=== PATIENT | male | born 1955 | race Caucasian/White ===

== ENCOUNTER 2016-10-14 10:16 | Inpatient (IN) ==
[2016-10-14 11:41] VITALS: BMI 24.2
--- NOTE | 2016-10-14 12:06 | IRU History & Physical Report ---
HPI [facility] Date: Chief complaint: I'm weak on my right side HPI: Mr. Rubi is a pleasant gentleman who has experienced a recent CVA involving the left hemisphere. He has a history of prior strokes at least on 2 prior occasions. At this time, about 2 weeks ago he walked over to his daughter's house who lives next door to him. He reported to her that he was not feeling right. She noted that he was dragging his right leg and that the right face was drooped which was new for him. There was also some speech difficulty. The patient was transferred to [place] emergency department where he was evaluated and seen by tele-neurologist. CT scan failed to reveal any new findings but an MRI was not immediately available. The neurologist recommended against TPA and recommended MRI. He was then transported to [facility] in [place]. On 10/04/2016 MRI of the brain revealed an acute lacunar infarct involving the posterior limb of the left internal capsule. No bleed was noted. MRA of the neck with contrast revealed moderate atherosclerotic disease, right greater than left disease involving the posterior cerebral arteries but otherwise no evidence of acute occlusion. No aneurysmal formation was noted. Surgery was not recommended. The patient was treated with Plavix and aspirin. Unfortunately he developed acute GI bleeding with a drop in his hemoglobin from 10.6 down to 9.4 on October 11. He was noted to have an acute GI bleed involving the GE junction where a distal esophageal ulcer was noted with stricture. At the present time medically he requires monitoring of his hemoglobin as well as the effects from his stroke. He is off Plavix due to the bleed and for this reason he is at increased risk of angina. He does see Dr. Zapien regarding his cardiac status. Does have history of prior heart attack 7 years ago. A stent was placed. Had a recent treadmill and was told that he does have some disease but did not recommend intervention at this time. Patient does have history of hypertension but no diabetes. He is a former smoker. 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 Prior to this, the patient did have significant debilitation in terms of memory loss, however he was was living independently at home. Daughter lives next door. 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 He was able to prepare his own foods at home and take care of himself at home prior to the current event. The following medical conditions are noted and require physician monitoring and treatment. 1. Recent CVA regarding left internal capsule, ischemic 2. Underlying coronary artery disease. His Plavix is held due to the GI bleeding and he is at increased risk for angina in this regard. 3. Recent GI bleeding involving lower esophageal ulcer with stricture. The following therapies will be needed: 1. Physical therapy: for transfers and ambulation and stairs. He does have 3 stairs to get into his house at home. He does not use assistive devices at home. 2. Occupational therapy: for ADL's and transfers. 3. Dietitian:. Regarding low fat low cholesterol low salt diet and mechanically soft alteration. He will require speech therapy as well evaluation. 4. Medical management: for the above conditions. 5. 24 hour Rehabilitation Nursing to monitor and address the following: Blood pressure, coronary artery disease, monitoring for any evidence of GI bleeding and stroke progression. Review of Systems - Constitutional Constitutional: Present: as per HPI, anorexia, fatigue. Absent: headache(s) - EENMT Mouth/Throat: Absent: sore throat - Cardiovascular Cardiovascular: Absent: chest pain, palpitations, syncope, dyspnea on exertion, orthopnea, edema Rhythm: Present: regular rhythm Vascular: Absent: intermittent claudication, pallor of an extermity, pedal edema - Respiratory Respiratory: Absent: cough, dyspnea, hemoptysis, dyspnea on exertion - Gastrointestinal Gastrointestinal: Absent: abdominal pain, change in bowel habits, change in stool character, constipation, diarrhea Gastrointestinal Comments: He has had recent evidence of GI bleeding. I'm not certain if he had melena or hematemesis. I do see a report of an upper GI in the transfer records but do not see an EGD although one may have been done. - Genitourinary Genitourinary: Absent: difficulty urinating - Musculoskeletal Musculoskeletal: Present: abnormal gait - Neurological Neurological: Present: abnormal gait, focal weakness, memory loss. Absent: frequent falls [facility] Patient Stated Medical History Cerebrovascular Accident Yes: 10/2012, 10/2014-right sided weakness, 2016 Dementia Yes Hearing Loss Yes Hypertension Yes Myocardial Infarction Yes: 2009 Constipation No Gastroesophageal Reflux Yes Disease Hx Incontinence No Clotting Problems Yes: saw dr white and added vitamins to help Other Musculoskeletal Yes: gout Depression Yes Surgical History: Hernia repair, cardiac catheterization with stent placement 2009 Family History: Father is with "heart attack" Mother is with cancer - Social History Smoking status: Former smoker (smoked less than 1 pack weekly from age 14 to about age 57 or so) Time spent discussing smoking cessation with patient: 3 to 10 minutes Alcohol intake: former Alcohol intake frequency: former alcohol drinker Housing: house Household members: none Current occupational status: retired (worked as a 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 for a grocery 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.) Current residence: Apartment/Private Home (supportive daughter who lives next door.) Medications Home Medications Medication Instructions Recorded Confirmed Type Allopurinol 450 mg PO DAILY #0 02/01/12 10/14/16 History Clopidogrel Bisulfate [Plavix] 75 mg PO DAILY #0 02/06/12 10/14/16 History Carvedilol 1 tab PO DAILY #0 tab 12/09/14 10/14/16 History Cyanocobalamin/Folic Acid [Vitamin 1 tab PO DAILY #0 12/09/14 10/14/16 History D09-[id number] Acid Tablet] Donepezil HCl 10 mg PO HS #0 tab 10/06/15 10/14/16 History Stanfield-3 Fatty Acids [Stanfield-3] 1,000 mg PO DAILY 10/03/16 10/14/16 History Aspirin 1 tab PO DAILY 10/14/16 10/14/16 History Atorvastatin Calcium 1 tab PO HS 10/14/16 10/14/16 History Doxazosin [Cardura] 2 mg PO BID 10/14/16 10/14/16 History Pantoprazole Tab [Protonix Tab] 1 tab PO ACBID 10/14/16 10/14/16 History Allergies Allergy/AdvReac Type Severity Reaction Status Date / Time Penicillins AdvReac Mild Verified 10/06/15 12:56 Exam Vital Signs: Temperature 97.6 F 10/14/16 11:09 Pulse Rate 76 10/14/16 11:09 Respiratory Rate 16 10/14/16 11:09 Blood Pressure 133/86 10/14/16 11:09 Pulse Oximetry 92 10/14/16 11:09 Oxygen Delivery Method Room Air Height: 1.75 m Weight: 74.3 kg Body Mass Index: 24.2 - Constitutional Present: no acute distress Comments: Patient appears apathetic. Unable to answer many questions and refers most questions to his daughter. - Routine HEENT Exam Head: Present: normocephalic, atraumatic Eye: Present: EOMI, PERRL. Absent: conjunctival icterus, scleral injection ENT: Present: mucous membranes moist, oropharynx clear - Routine Neck Exam Present: supple, full ROM. Absent: JVD, carotid bruit - Routine Respiratory Exam Present: CTA bilaterally. Absent: accessory muscle use, respiratory distress, wheezes, crackles - Routine Cardiovascular Exam Present: RRR, S1, S2, no murmur - Routine Abdominal Exam Present: soft, normoactive bowel sounds, non distended, non tender - Routine Extremities Exam Present: no edema, pulses intact, normal capillary refill. Absent: cyanosis - Routine Skin Exam Present: intact, dry. Absent: erythema - Routine Neurological Exam Present: alert, motor deficit (right facial droop, markedly reduced fine motor movement right hand, weakness and flexion and extension right upper extremity. Right lower extremity demonstrates weakness compared to the left but is able to raise off the bed against resistance.), abnormal gait. Absent: oriented X3, CN II-XII intact Memory loss evident. - Routine Psychiatric Exam Present: cooperative. Absent: normal affect, normal thought process, good insight, good judgment IRU A/P (1) Cerebral infarction Qualifiers: Cerebral infarction mechanism: thrombosis Precerebral and cerebral artery: middle cerebral artery Laterality of affected vessel: left Qualified Code(s) : I63.312 - Cerebral infarction due to thrombosis of left middle cerebral artery Current visit: No Status: Acute Patient has been on Plavix for that is been held due to the GI bleeding. We will monitor for any progression of the stroke. He will require physical therapy , occupational therapy and speech therapy. (2) Acute GI bleeding Current visit: Yes Status: Acute Hemoglobin will be monitored. Patient does have esophageal ulcer with stricture (3) Acute blood loss anemia Current visit: Yes Status: Acute (4) Memory loss due to medical condition Current visit: Yes Status: Acute Patient apparently did have some chronic memory loss prior to the current stroke but appears to have worsening memory issues at present. (5) Benign essential hypertension Current visit: Yes Status: Chronic (6) Coronary artery disease Qualifiers: Coronary Disease-Associated Artery/Lesion type: [place] artery [place] vs. transplanted heart: [place] heart Associated angina: without angina Qualified Code(s): I25.10 - Atherosclerotic heart disease of [place] coronary artery without angina pectoris Current visit: Yes Status: Chronic Patient has had a previous myocardial infarction followed by stent placement. Reported recent treadmill indicates presence of ischemia but intervention not recommended at present. DVT Prophylaxis: SCD's Resuscitation Status: Full Code - Course Hospital Course: Michael Romo MD: - Interventions to Obtain Goals Goals Progress/Modifications: Therapy will be directed toward strengthening, improving transfers and ambulatory ability. We will assess his swallowing ability with speech therapy. Anticipated goals including returning home for independent functioning and to avoid readmission.
--- NOTE | 2016-10-14 12:31 | IRU 24Hr Post Admit Eval ---
24 Hr Post Admission Physical - Relevant Changes Relevant Changes: No Reviewed: I have reviewed the patient's information and concur with the finding and results of the pre-admission screen. Certification: I certify the patient for rehabilitation. - Patient Condition (1) Cerebral infarction Status: Acute Qualifiers: Cerebral infarction mechanism: thrombosis Precerebral and cerebral artery: middle cerebral artery Laterality of affected vessel: left Qualified Code(s) : I63.312 - Cerebral infarction due to thrombosis of left middle cerebral artery Code(s): I63.9 - Cerebral infarction, unspecified Classification: Present on IRF Admission, IRF Tx That Should Address Diagnosis, Diagnosis Requiring Medical Follow Up (2) Acute GI bleeding Status: Acute Code(s): K92.2 - Gastrointestinal hemorrhage, unspecified Classification: IRF Tx That Should Address Diagnosis, Diagnosis Requiring Medical Follow Up (3) Acute blood loss anemia Status: Acute Code(s): D62 - Acute posthemorrhagic anemia Classification: Present on IRF Admission, IRF Tx That Should Address Diagnosis, Diagnosis Requiring Medical Follow Up (4) Memory loss due to medical condition Status: Acute Code(s): R41.3 - Other amnesia Classification: Present on IRF Admission, Other Contributing Factor (5) Benign essential hypertension Status: Chronic Code(s): I10 - Essential (primary) hypertension Classification: Present on IRF Admission (6) Coronary artery disease Status: Chronic Qualifiers: Coronary Disease-Associated Artery/Lesion type: [place] artery [place] vs. transplanted heart: [place] heart Associated angina: without angina Qualified Code(s): I25.10 - Atherosclerotic heart disease of [place] coronary artery without angina pectoris Code(s): I25.10 - Atherosclerotic heart disease of [place] coronary artery without angina pectoris Classification: Present on IRF Admission, Diagnosis Requiring Medical Follow Up - Prior Functional Status Residence Type: Hospice Assitive Devices: None Prior Functional Status: Indep. at home or school, Used no assistive device - Current Functional Status Failed Alternative Therapy: Arrived from Acute Care Patient Requirements: The patient requires oversight by rehabilitation physician to manage their rehabilitation treatment plan and multidisciplinary approach to care that can only be provided in an IRF and requires a multidisciplinary approach to care, provided by professional PTs, OTs, STs, dieticians, RTs, rehabilitation nurses and is not available in lesser levels of care. Speech Therapy Minutes: 30 Physical Therapy Minutes: 90 Occupational Therapy Minutes: 90 Therapy: The patient is to receive therapy at least [address] Treatment Plan: Swallow Retraining/Exercises, Swallow Precautions, Modified Diet ST Treatment Plan Frequency: Daily - Complications/Comorbidities Barriers to Discharge: Weakness, Balance, Endurance, Comprehension - Plan to Avoid Complications Plan to Avoid Complications: The patient cannot receive this care in a lesser intensive setting such as Halfway or Outpatient Therapy due to the patient requiring the following : Recent GI bleed with need to monitor hemoglobin carefully, recent CVA to monitor for progression of stroke or recurrence, underlying coronary artery disease with Plavix currently being held due to GI bleeding. .
--- NOTE | 2016-10-14 14:06 | Consult Note ---
<Kateryna Nelson - Last Filed: 10/14/16 13:48> Consult Information - Data of Consult Patient: new to practice Consult date: 10/14/16 Requesting Physician: Michael Romo MD Primary Care Provider: KELLEY STOLL Family Provider: KELLEY STOLL - Consult Narrative Reason for consult: medical management of chronic health problems History of present illness: Mr. Rubi is a 61-year-old white male admitted into the rehabilitation unit for ongoing strengthening following a recent stroke. He initially presented to [place] emergency department on 10/03 with symptoms of right facial droop and weakness of the right lower extremity. CT head was negative for acute changes. He was not a candidate for TPA given that he was not sure of time of onset of symptoms. He was transferred to [place] at the request of the family for further workup. MRI performed 10/04 revealed an acute lacunar infarct involving the posterior limb of the left internal capsule. MRA of the head revealed moderate atherosclerotic disease within the carotid siphons and right greater than left atherosclerotic disease involving the posterior cerebral arteries. MRA of the neck showed mild atherosclerotic disease at the carotid bifurcation. 2-D echo with bubble study was unremarkable. During his hospital stay he developed melanotic stools and a drop in his hemoglobin. This was worked up with an upper GI showing narrowing of the distal esophagus suggestive of underlying mucosal irregularity thought to be either an underlying neoplasm versus esophagitis from chronic reflux. EGD was then performed showing GE junction/distal esophageal ulcer with stricture and gastric erythema and erosions. Patient was started on twice a day PPI therapy with pantoprazole. To be treated for a total of 8 weeks. He will follow up with Dr. Leyva to review pathology results. His aspirin was restarted during his hospitalization in [place] and if he has no bleeding, he is to resume Plavix on 10/16. He also had speech therapy during his stay and progressed to a regular diet. The majority of this history of present illness is gathered through previous records. Patient with dementia. Poor historian. Patient requests to be a full code. See results section for full description of imaging and labs. [facility] CVA-10/23, 10/25, 09/26 Recent GI bleed Blood loss Anemia-related to recent GI bleed. 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 Lindsay Review of Systems Comprehensive ROS: completed and no additional positive findings except those as stated - Neurological Neurological: Present: memory loss, weakness (right-sided) Medications Home Medications Medication Instructions Recorded Confirmed Type Allopurinol 450 mg PO DAILY #0 02/01/12 10/14/16 History Clopidogrel Bisulfate [Plavix] 75 mg PO DAILY #0 02/06/12 10/14/16 History Carvedilol 1 tab PO DAILY #0 tab 12/09/14 10/14/16 History Cyanocobalamin/Folic Acid [Vitamin 1 tab PO DAILY #0 12/09/14 10/14/16 History J85-Dokge Acid Tablet] Donepezil HCl 10 mg PO HS #0 tab 10/06/15 10/14/16 History Newnan-3 Fatty Acids [Newnan-3] 1,000 mg PO DAILY 10/03/16 10/14/16 History Aspirin 1 tab PO DAILY 10/14/16 10/14/16 History Atorvastatin Calcium 1 tab PO HS 10/14/16 10/14/16 History Doxazosin [Cardura] 2 mg PO BID 10/14/16 10/14/16 History Pantoprazole Tab [Protonix Tab] 1 tab PO ACBID 10/14/16 10/14/16 History Allergies Allergy/AdvReac Type Severity Reaction Status Date / Time Penicillins AdvReac Mild Verified 10/06/15 12:56 Exam Vital Signs: Temperature 97.6 F 10/14/16 11:09 Pulse Rate 76 10/14/16 11:09 Respiratory Rate 16 10/14/16 11:09 Blood Pressure 133/86 10/14/16 11:09 Pulse Oximetry 92 10/14/16 11:09 Oxygen Delivery Method Room Air Height: 1.75 m Weight: 74.3 kg Body Mass Index: 24.2 - Constitutional Present: no acute distress, well nourished, well developed - Routine HEENT Exam Head: Present: normocephalic, atraumatic Eye: Present: EOMI, PERRL ENT: Present: mucous membranes moist. Absent: dentition normal (missing multiple teeth. Lower teeth remaining with decay) - Routine Neck Exam Present: supple. Absent: carotid bruit - Routine Chest/Breast/Axilla Exam Chest wall: Absent: tenderness - Routine Respiratory Exam Present: CTA bilaterally. Absent: wheezes - Routine Cardiovascular Exam Present: RRR, S1, S2. Absent: murmur - Routine Abdominal Exam Present: soft, normoactive bowel sounds, non distended. Absent: tenderness - Routine Extremities Exam Present: no edema, normal capillary refill - Routine Skin Exam Present: dry, warm - Routine Neurological Exam Present: alert, oriented X3, CN II-XII intact, abnormal gait (secondary to right -sided weakness), moving all extremities, facial asymmetry (mild right facial droop). Absent: sensory deficit, pronator drift Spa Supervisor strength is equal. 4/5 strength right arm and leg. 5/5 strength left arm and leg. Normal finger-nose and finger-finger. Delay on right side with rapid alternating hand movements. Slight right-sided facial droop noted of the mouth. Normal sensation bilaterally. Patient has difficulty with answering questions. Short-term memory loss. Oriented to person and place. Cannot identify day of week but can identify the month and year. Unable to identify president correctly. ([facility]) - Routine Psychiatric Exam Present: normal affect, cooperative. Absent: suicidal ideation Results - Labs Labs: Labs from 10/12/16 Hemoglobin 9.8, hematocrit 28.2, sodium 141, potassium 3.4, CO2 24, chloride 112 , creatinine 1.09, BUN 16, calcium 8.3 Labs from 10/11/16 WBC 6.2, hemoglobin 9.5, hematocrit 29.2, platelets 166, sodium 144, potassium 3.4, CO2 24, chloride 113, creatinine 1.11, BUN 23, glucose 89, magnesium 1.6 - Imaging and Cardiology CT scan - head Additional comments: 10/03/16 CT head-chronic microvascular changes and chronic lacunar infarcts 10/04/16 MRI brain-acute Lennar infarct involving the posterior limb of the left internal capsule. Deep white matter lacunar infarcts and advanced chronic microvascular changes present within the white matter. No acute hemorrhage. Remote blood products associated with the patient's chronic left basal ganglia lacunar infarcts and a small remote microbleed in the right parietal lobe. Findings may reflect sequelae of advanced underlying chronic microvascular disease although could be from intermittent embolic phenomenon. 10/04/16 MRA head-moderate atherosclerotic disease within the carotid siphons. Right greater than left atherosclerotic disease involving the posterior cerebral arteries. No aneurysm. 10/04/16 MRA neck-mild atherosclerotic disease at the carotid bifurcation. No significant stenosis. 10/12/16 Upper GI-persistent relative narrowing of the distal esophagus. Findings could be related to esophagitis from chronic reflux, although underlying neoplasm cannot be excluded. 10/12/16 EGD-GE junction/distal esophageal ulcer with stricture. Gastric erythema and erosions. Pathology pending. Assessment and Plan (1) Cerebral infarction Current visit: Yes Status: Acute (2) Acute GI bleeding Current visit: Yes Status: Acute Resuscitation Status: Full Code Assessment and Plan: Assessment CVA-10/23, 10/25, 09/26 Recent GI bleed Blood loss Anemia-related to recent GI bleed. 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 GERD-with evidence of esophagitis versus neoplasm on recent EGD (under the care of Dr. Leyva) Constipation Gout-on allopurinol Depression Plan Agree with admission to rehabilitation under the care of Dr. Romo. The hospitalist team will continue to follow patient for medical management throughout the patient's stay. CVA Continue aspirin. He is to restart Plavix on 10/16/16 if he has no further bleeding. Lipitor was increased to 80 mg in [place]. Continue Lovaza. Encourage PT/OT for strengthening Recent GI bleed Reported B12 and folate deficiency. Continue on folic acid and cyanocobalamin Continue pantoprazole 40 mg twice a day for GI protection. Monitor for evidence of bleeding. Will plan to resume Plavix as discussed above. Follow serial hemoglobin. To follow-up with Dr. Leyva in 1-2 months. GERD with esophagitis continue pantoprazole CAD/hypertension Continue carvedilol and doxazosin. Monitor closely as he had hypotension during recent hospitalization. Gout Continue allopurinol Dementia Continue Aricept Hospital Course Summary Disclaimer: The visit summary below is not to be considered part of the above Progress Note. Hospital Course: 10/14/16 - hospitalist consult Assessment CVA-10/23, 10/25, 09/26 Recent GI bleed Blood loss Anemia-related to recent GI bleed. 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 GERD-with evidence of esophagitis versus neoplasm on recent EGD (under the care of Dr. Leyva) Constipation Gout-on allopurinol Depression Plan Agree with admission to rehabilitation under the care of Dr. Romo. The hospitalist team will continue to follow patient for medical management throughout the patient's stay. CVA Continue aspirin. He is to restart Plavix on 10/16/16 if he has no further bleeding. Lipitor was increased to 80 mg in [place]. Continue Lovaza. Encourage PT/OT for strengthening Recent GI bleed Reported B12 and folate deficiency. Continue on folic acid and cyanocobalamin Continue pantoprazole 40 mg twice a day for GI protection. Monitor for evidence of bleeding. Will plan to resume Plavix as discussed above. Follow serial hemoglobin. To follow-up with Dr. Leyva in 1-2 months. GERD with esophagitis continue pantoprazole CAD/hypertension Continue carvedilol and doxazosin. Monitor closely as he had hypotension during recent hospitalization. Gout Continue allopurinol Dementia Continue Aricept <Alison Lee - Last Filed: 10/14/16 18:49> Consult Information - Data of Consult Requesting Physician: Michael Romo MD Primary Care Provider: KELLEY STOLL Family Provider: KELLEY STOLL [facility] Patient Stated Medical History Cerebrovascular Accident Yes: 10/2012, 10/2014-right sided weakness, 2016 Dementia Yes Hearing Loss Yes Hypertension Yes Myocardial Infarction Yes: 2009 Constipation No Gastroesophageal Reflux Yes Disease Hx Incontinence No Clotting Problems Yes: saw dr white and added vitamins to help Other Musculoskeletal Yes: gout Depression Yes Exam Vital Signs: Temperature 97.9 F 10/14/16 16:00 Pulse Rate 99 10/14/16 16:00 Respiratory Rate 16 10/14/16 16:00 Blood Pressure 141/83 H 10/14/16 16:00 Pulse Oximetry 98 10/14/16 16:00 Oxygen Delivery Method Room Air Height: 5 ft 9 in Weight: 163 lb 12.855 oz Results - Labs CBC & Chem 7: 10/14/16 14:18 Assessment and Plan (1) Cerebral infarction Current visit: Yes Status: Acute (2) Acute GI bleeding Current visit: Yes Status: Acute Assessment and Plan: I have independently evaluated and examined this patient. 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 We discussed and formulated the assessment and plan as above with additions as below. The patient was seen sitting in a chair in his room. He expresses his wish to be home. Discussed his recent hospital course with his CVA and recent GI bleed. He has no complaints at this time. In general, the patient is alert and oriented 3, cooperative with exam, and in no respiratory distress. HEENT: Head is atraumatic, normocephalic, membranes are moist and pink. Lungs: Clear to auscultation without wheezes, crackles or rhonchi CV: Regular rate and rhythm without murmur Abdomen: Soft, nontender, bowel sounds are present, there is no guarding no rebound. Extremities: No clubbing, no cyanosis, no edema. Skin: Warm and dry no sign of rash Neuro: Patient is alert with right facial droop, weakness of right hand and right leg As outlined by Dr. Leyva, Will continue aspirin for 72 hours, check CBC in the morning, if his hemoglobin remains stable will resume Plavix on October 16. Hospital Course Summary Disclaimer: The visit summary below is not to be considered part of the above Progress Note.
[2016-10-14] MEDS: PANTOPRAZOLE 40 MG TABLET PO SCH (17:43)
[2016-10-14] MEDS: ASPIRIN 325 MG TABLET PO SCH (17:43)
[2016-10-14] MEDS: DONEPEZIL 10 MG TABLET PO SCH (21:11)
[2016-10-14] MEDS: ATORVASTATIN 40 MG TABLET PO SCH (21:11)
[2016-10-14] MEDS: DOXAZOSIN 2 MG TABLET PO SCH (21:11)
[2016-10-15] MEDS: PANTOPRAZOLE 40 MG TABLET PO SCH ×2 (07:16→17:20)
[2016-10-15] MEDS: CARVEDILOL 3.125 MG TABLET PO SCH (08:30)
[2016-10-15] MEDS: ALLOPURINOL 300 MG TABLET PO SCH (08:31)
[2016-10-15] MEDS: FOLIC ACID 1 MG TABLET PO SCH (08:31)
[2016-10-15] MEDS: CYANOCOBALAMIN (B-12) 500mcg TABLET PO SCH (08:31)
[2016-10-15] MEDS: DOXAZOSIN 2 MG TABLET PO SCH ×2 (08:31→20:59)
[2016-10-15] MEDS: OMEGA-3 ACID ESTERS 1 GM CAPSULE PO SCH (08:31)
[2016-10-15] MEDS: ASPIRIN 325 MG TABLET PO SCH (08:33)
[2016-10-15] MEDS: ATORVASTATIN 40 MG TABLET PO SCH (20:59)
[2016-10-15] MEDS: DONEPEZIL 10 MG TABLET PO SCH (20:59)
[2016-10-16] MEDS: PANTOPRAZOLE 40 MG TABLET PO SCH ×2 (06:28→17:49)
[2016-10-16] MEDS: CYANOCOBALAMIN (B-12) 500mcg TABLET PO SCH (09:14)
[2016-10-16] MEDS: OMEGA-3 ACID ESTERS 1 GM CAPSULE PO SCH (09:14)
[2016-10-16] MEDS: FOLIC ACID 1 MG TABLET PO SCH (09:14)
[2016-10-16] MEDS: CARVEDILOL 3.125 MG TABLET PO SCH (09:14)
[2016-10-16] MEDS: ALLOPURINOL 300 MG TABLET PO SCH (09:14)
[2016-10-16] MEDS: DOXAZOSIN 2 MG TABLET PO SCH ×2 (09:14→21:10)
[2016-10-16] MEDS: ASPIRIN 325 MG TABLET PO SCH (09:15)
--- NOTE | 2016-10-16 10:35 | Progress Note ---
Subjective: Mr. Rubi is seen this morning in follow up for his recent CVA and generalized debility. He also has a known esophageal ulcer. He is seen while sitting in the dining room, finishing his breakfast. He denies any complaints including no chest pain, shortness of breath, abdominal pain, nausea, vomiting or dysuria. He states that his appetite is good and his bowels are moving, though no BM noted in nursing notes. He does express a strong desire to go home. On exam, he is alert and orientated x3 and in no apparent distress. He has eaten almost all of his breakfast. Cardiac exam reveals regular rate and rhythm and lungs are clear to auscultation bilaterally. Abdomen is soft, nontender with active bowel sounds. No edema noted to lower extremities. Mild right facial droop noted. Labs from this morning revealed stable anemia with hemoglobin at 9.8, persistent hypernatremia with sodium at 147 and new hypokalemia with potassium at 3.4. Vital signs stable. Objective Vital signs: Temperature 98.1 F 10/16/16 07:43 Pulse Rate 63 10/16/16 07:43 Respiratory Rate 12 10/16/16 07:43 Blood Pressure 141/78 H 10/16/16 07:43 Pulse Oximetry 98 10/16/16 07:43 Oxygen Delivery Method Room Air Body Mass Index: 24.2 - Constitutional Present: no acute distress, well nourished, well developed, cooperative - Routine HEENT Exam Head: Present: normocephalic, atraumatic Eye: Present: PERRL. Absent: conjunctival icterus ENT: Present: mucous membranes dry - Routine Respiratory Exam Present: CTA bilaterally. Absent: rhonchi, stridor, wheezes - Routine Cardiovascular Exam Present: RRR, S1, S2, no murmur - Routine Abdominal Exam Present: soft, normoactive bowel sounds, non distended, non tender - Routine Extremities Exam Present: no edema, pulses intact - Routine Back/Spine/Pelvis Exam Back/Spine: Absent: vertebral tenderness - Routine Musculoskeletal Exam Musculoskeletal: Present: no clubbing or cyanosis, moving extremities well - Routine Skin Exam Present: intact, dry, warm Comments: afebrile - Routine Neurological Exam Present: alert, oriented X3, moving all extremities, facial asymmetry (right facial droop) - Routine Lymphatic Exam Lymphatic: Absent: lymphedema - Routine Psychiatric Exam Present: normal affect, cooperative Results - Labs CBC & Chem 7: 10/16/16 04:25 10/16/16 04:26 Assessment and Plan (1) Cerebral infarction Current visit: Yes Status: Acute (2) Acute GI bleeding Current visit: Yes Status: Acute Assessment and Plan: 10/16/16-Mirakian. Hypernatremia, acute. * Present on admission. Sodium 147 today. Encourage fluid intake and monitor trends closely. Hypokalemia, acute. * Potassium 3.4 today. Will give KCl 20 mEq po now and recheck in AM. CVA - 10/23, 10/25, 09/26. * Continue ASA. Hemoglobin remains stable at 9.8 today. Will restart Plavix and monitor closely for signs of bleeding. Continue Lipitor at new dose (80mg) and Lovaza. Continue to encourage participation in therapies for improvement in strength and functional abilities. Blood loss anemia, related to GI bleed and history of GERD. * Recent EGD by Dr. Leyva in 09/2016 showed evidence of esophagitis vs. neoplasm. Continue Protonix 40mg BID for treatment of esophageal ulcer and GI protection x 8 weeks per prior notes. Monitor closely for signs of GI bleed in light of reinitiation of Plavix. Will recheck CBC in AM to monitor blood counts. * Patient to follow up with Dr. Leyva in 1-2 months as an outpatient. B12 and folic acid deficiency anemia. * Continue folic acid and cyanocobalamin. Hypertension. * Continue carvedilol and doxazosin. Monitor closely as he had hypotension during recent hospitalization. CAD. Dementia, chronic. * Continue home Aricept. Constipation. * Bowel motivation at indicated with Colace and MOM. Gout, chronic. * Continue home allopurinol. Sepsis Assessment - Evaluation Sepsis screening result: No Definite Risk Hospital Course Summary Disclaimer: The visit summary below is not to be considered part of the above Progress Note. Hospital Course: 10/14/16 - hospitalist consult Assessment CVA-10/23, 10/25, 09/26 Recent GI bleed Blood loss Anemia-related to recent GI bleed. 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 GERD-with evidence of esophagitis versus neoplasm on recent EGD (under the care of Dr. Leyva) Constipation Gout-on allopurinol Depression Plan Agree with admission to rehabilitation under the care of Dr. Romo. The hospitalist team will continue to follow patient for medical management throughout the patient's stay. CVA Continue aspirin. He is to restart Plavix on 10/16/16 if he has no further bleeding. Lipitor was increased to 80 mg in [place]. Continue Lovaza. Encourage PT/OT for strengthening Recent GI bleed Reported B12 and folate deficiency. Continue on folic acid and cyanocobalamin Continue pantoprazole 40 mg twice a day for GI protection. Monitor for evidence of bleeding. Will plan to resume Plavix as discussed above. Follow serial hemoglobin. To follow-up with Dr. Leyva in 1-2 months. GERD with esophagitis continue pantoprazole CAD/hypertension Continue carvedilol and doxazosin. Monitor closely as he had hypotension during recent hospitalization. Gout Continue allopurinol Dementia Continue Aricept 10/16/16 10:50-Mirakian. Hypernatremia, acute. * Present on admission. Sodium 147 today. Encourage fluid intake and monitor trends closely. Hypokalemia, acute. * Potassium 3.4 today. Will give KCl 20 mEq po now and recheck in AM. CVA - 10/23, 10/25, 09/26. * Continue ASA. Hemoglobin remains stable at 9.8 today. Will restart Plavix and monitor closely for signs of bleeding. Continue Lipitor at new dose (80mg) and Lovaza. Continue to encourage participation in therapies for improvement in strength and functional abilities. Blood loss anemia, related to GI bleed and history of GERD. * Recent EGD by Dr. Leyva in 09/2016 showed evidence of esophagitis vs. neoplasm. Continue Protonix 40mg BID for treatment of esophageal ulcer and GI protection x 8 weeks per prior notes. Monitor closely for signs of GI bleed in light of reinitiation of Plavix. Will recheck CBC in AM to monitor blood counts. * Patient to follow up with Dr. Leyva in 1-2 months as an outpatient. B12 and folic acid deficiency anemia. * Continue folic acid and cyanocobalamin. Hypertension. * Continue carvedilol and doxazosin. Monitor closely as he had hypotension during recent hospitalization. CAD. Dementia, chronic. * Continue home Aricept. Constipation. * Bowel motivation at indicated with Colace and MOM. Gout, chronic. * Continue home allopurinol.
[2016-10-16] MEDS: CLOPIDOGREL 75 MG TABLET PO SCH (12:00)
[2016-10-16] MEDS: DONEPEZIL 10 MG TABLET PO SCH (21:10)
[2016-10-16] MEDS: ATORVASTATIN 40 MG TABLET PO SCH (21:10)
[2016-10-17] MEDS: PANTOPRAZOLE 40 MG TABLET PO SCH ×2 (05:52→17:34)
[2016-10-17] MEDS: DOXAZOSIN 2 MG TABLET PO SCH ×2 (08:19→22:00)
[2016-10-17] MEDS: ALLOPURINOL 300 MG TABLET PO SCH (08:19)
[2016-10-17] MEDS: CLOPIDOGREL 75 MG TABLET PO SCH (08:19)
[2016-10-17] MEDS: FOLIC ACID 1 MG TABLET PO SCH (08:20)
[2016-10-17] MEDS: OMEGA-3 ACID ESTERS 1 GM CAPSULE PO SCH (08:20)
[2016-10-17] MEDS: CYANOCOBALAMIN (B-12) 500mcg TABLET PO SCH (08:20)
[2016-10-17] MEDS: CARVEDILOL 3.125 MG TABLET PO SCH (08:20)
[2016-10-17] MEDS: ASPIRIN 325 MG TABLET PO SCH (08:21)
--- NOTE | 2016-10-17 12:23 | IRU Progress Note ---
- Subjective/Serverity of Illness Mr. Rubi is settling into rehabilitation. He seems to be ambulating well and with good distance. He requires standby assistance. The patient wonders why he is here. His memory loss is reasonably severe unfortunately. He would like to get back home as soon as possible. He is working with occupational therapy and speech therapy as well as physical therapy. The patient does have history of known coronary disease and a recent GI bleed. Hemoglobin is being monitored and is stable. Plavix and aspirin have been restarted per recommendation from [place]. He denies any chest pain. He denies any shortness of breath. Appetite is reasonable. Exam Vital Signs: Temperature 97.6 F 10/17/16 07:00 Pulse Rate 93 10/17/16 07:00 Respiratory Rate 18 10/17/16 07:00 Blood Pressure 134/98 H 10/17/16 07:00 Pulse Oximetry 98 10/17/16 07:00 Oxygen Delivery Method Room Air Height: 1.75 m Weight: 74.3 kg Body Mass Index: 24.2 - Constitutional Present: no acute distress Comments: The patient is awake, alert, poorly oriented but in no acute distress. Pupils are equal. The neck is supple. Chest: Clear to auscultation bilaterally. Cor: RR with no david, click nor murmur Abd: soft with normo-active bowel sounds. There are no masses, no tenderness and no guarding. Extremities: No edema is noted. Neurologic: RUE weak, able to ambulate with quad cane. Right face droop. Slurred speech as before. - Routine HEENT Exam Head: Present: normocephalic Eye: Present: EOMI ENT: Present: dentition normal - Routine Neck Exam Present: supple, full ROM - Routine Respiratory Exam Present: CTA bilaterally - Routine Cardiovascular Exam Present: RRR, S1, S2, no murmur - Routine Abdominal Exam Present: soft, normoactive bowel sounds, non distended, non tender - Routine Neurological Exam Present: alert, facial asymmetry. Absent: oriented X3, normal speech - Routine Psychiatric Exam Present: cooperative, anxious. Absent: good insight, good judgment (Memory loss ) Results IRU - Labs Labs: Reviewed hemoglobin which is stable. Sepsis Assessment - Evaluation Sepsis screening result: No Definite Risk IRU A/P (1) Cerebral infarction Qualifiers: Cerebral infarction mechanism: thrombosis Precerebral and cerebral artery: middle cerebral artery Laterality of affected vessel: left Qualified Code(s) : I63.312 - Cerebral infarction due to thrombosis of left middle cerebral artery Current visit: Yes Status: Acute Plavix and aspirin have been restarted. No worsening in his neurologic status. Continues to have right upper extremity weakness and slurred speech. (2) Acute GI bleeding Current visit: Yes Status: Acute No evidence of active GI bleeding. Hemoglobin is stable. No abdominal pain. (3) Acute blood loss anemia Current visit: Yes Status: Acute (4) Memory loss due to medical condition Current visit: Yes Status: Acute (5) Benign essential hypertension Current visit: Yes Status: Chronic (6) Coronary artery disease Qualifiers: Coronary Disease-Associated Artery/Lesion type: ho-chunk artery [place] vs. transplanted heart: ho-chunk heart Associated angina: without angina Qualified Code(s): I25.10 - Atherosclerotic heart disease of ho-chunk coronary artery without angina pectoris Current visit: Yes Status: Chronic Plavix and aspirin have been restarted. He denies any chest pain. Denies shortness of breath. Heart exam is unremarkable. DVT Prophylaxis: SCD's Resuscitation Status: Full Code - Course Hospital Course: Michael Romo MD: 10/17/16 12:26 Continues to progress with therapy. No chest pain. Hemoglobin stable. Wants to go home. Memory loss is a barrier to his progress. - Interventions to Obtain Goals PT Treatment Plan: Balance/Proprioception, Functional Activities, Gait Training , Patient/Family Education, Therapeutic Exercise OT Treatment Plan: ADL (Basic Care), Balance Training, IADL, Pt./Family Education, Ther. Exercise for ADL Goals Progress/Modifications: Memory loss is a significant barrier. He is cooperative. He is progressing with therapy.
--- NOTE | 2016-10-17 12:31 | IRU Plan of Care ---
U Overall Plan of Care - Date Date: 10/17/16 - Patient Impairments (1) Cerebral infarction Qualifiers: Cerebral infarction mechanism: thrombosis Precerebral and cerebral artery: middle cerebral artery Laterality of affected vessel: left Qualified Code(s) : I63.312 - Cerebral infarction due to thrombosis of left middle cerebral artery Code(s): I63.9 - Cerebral infarction, unspecified Status: Acute Classification: Present on IRF Admission, IRF Tx That Should Address Diagnosis, Diagnosis Requiring Medical Follow Up (2) Acute GI bleeding Code(s): K92.2 - Gastrointestinal hemorrhage, unspecified Status: Acute Classification: IRF Tx That Should Address Diagnosis, Diagnosis Requiring Medical Follow Up (3) Memory loss due to medical condition Code(s): R41.3 - Other amnesia Status: Acute Classification: Present on IRF Admission, Other Contributing Factor (4) Coronary artery disease Qualifiers: Coronary Disease-Associated Artery/Lesion type: [place] artery [place] vs. transplanted heart: [place] heart Associated angina: without angina Qualified Code(s): I25.10 - Atherosclerotic heart disease of [place] coronary artery without angina pectoris Code(s): I25.10 - Atherosclerotic heart disease of [place] coronary artery without angina pectoris Status: Chronic Classification: Present on IRF Admission, Diagnosis Requiring Medical Follow Up (5) Acute blood loss anemia Code(s): D62 - Acute posthemorrhagic anemia Status: Acute Classification: Present on IRF Admission, IRF Tx That Should Address Diagnosis, Diagnosis Requiring Medical Follow Up - Relevant Changes Relevant Changes: No Reviewed: I have reviewed the patient's information and concur with the finding and results of the pre-admission screen. Certification: I certify the patient for rehabilitation. - Medical Prognosis Medical Prognosis: Good Vital Signs: Last Vital Signs Temp 97.6 F 10/17/16 07:00 Pulse 93 10/17/16 07:00 Resp 18 10/17/16 07:00 BP 134/98 H 10/17/16 07:00 Pulse Ox 98 10/17/16 07:00 - Anticipated Interventions Anticipated Interventions: The patient requires inpatient IRF care for PT, OT, and/or ST for residuals remaining from recent cerebral infarction, and acute GI bleeding with blood loss anemia resulting in muscular weakness and strength deficits. Strength Deficits: Right Upper Extremity - FIM Ambulation Distance: 442 Toileting Adaptive Equipment: Grab Bars Number of Incontinent Voids: 1 - Current Functional Status Failed Alternative Therapy: Arrived from Acute Care Patient Requires: The patient requires oversight by rehabilitation physician to manage their rehabilitation treatment plan and multidisciplinary approach to care that can only be provided in an IRF and requires a multidisciplinary approach to care, provided by professional PTs, OTs, STs, dieticians, RTs, rehabilitation nurses and is not available in lesser levels of care. Speech-Language Pathology Minutes: 30 Physical Therapy Minutes: 90 Occupational Therapy Minutes: 90 Therapy: The patient is to receive therapy at least [address] Treatment Plan: Swallow Precautions, Modified Diet ST Treatment Plan Duration: One Week ST Treatment Plan Frequency: Three Times Per Week Plan of Care Comment: Cont POC; Recommend continuing MS diet at this time. ST will assess toleration for diet upgrade on 10/17/16. - Anticipated LOS/Outcomes Anticipated Functional Outcome: It is anticipated the patient will be able to return home to be able to live independently with his daughter living close by. He will be able to transfer with modified independence and ambulate. He will be able to swallow safely. Anticipated Length of Stay: 5 Anticipated DC Destination: Home, Self Fdc Safety Plan: The patient will be provided with the development of a Home Safety Plan for return to a home or home-like environment and and to ensure safety post discharge. - Plan to Avoid Complications Barriers to Attaining Goals: Weakness, Comprehension, Medical Limitation Plan to Avoid Complications: The patient cannot receive this care in a lesser intensive setting such as Retirement or Outpatient Therapy due to the patient requiring the following : close medical following of his recent acute GI blood loss with acute blood loss anemia, risk for recurrence of angina pectoris, neurologic monitoring regarding his recent CVA.
[2016-10-17 20:15] VITALS: RESP 16; TEMP 98.1
[2016-10-17] MEDS: DONEPEZIL 10 MG TABLET PO SCH (22:00)
[2016-10-17] MEDS: ATORVASTATIN 40 MG TABLET PO SCH (22:00)
[2016-10-18] MEDS: PANTOPRAZOLE 40 MG TABLET PO SCH (06:25)
[2016-10-18] MEDS: OMEGA-3 ACID ESTERS 1 GM CAPSULE PO SCH (08:40)
[2016-10-18] MEDS: ASPIRIN 325 MG TABLET PO SCH (08:40)
[2016-10-18] MEDS: CLOPIDOGREL 75 MG TABLET PO SCH (08:41)
[2016-10-18] MEDS: CARVEDILOL 3.125 MG TABLET PO SCH (08:41)
[2016-10-18] MEDS: CYANOCOBALAMIN (B-12) 500mcg TABLET PO SCH (08:41)
[2016-10-18] MEDS: DOXAZOSIN 2 MG TABLET PO SCH (08:41)
[2016-10-18] MEDS: FOLIC ACID 1 MG TABLET PO SCH (08:42)
[2016-10-18] MEDS: ALLOPURINOL 300 MG TABLET PO SCH (08:42)
--- NOTE | 2016-10-18 10:30 | IRU Progress Note ---
- Subjective/Serverity of Illness Agustin is improving with regard to therapy. I interviewed and examined him today in his room. He is able to ambulate with standby assistance with a walker. However with a cane he requires more assistance. He does agree to use the walker at home. He is anxious to go home as soon as he can. He apparently does not see any value in staying here. Unfortunately his dementia /memory loss is a significant impediment to his improvement. He has been provided a lot of education but he does not really retain this very well. He has had some safety issues and has experienced loss of balance. With regard to ADLs, he is fairly independent with grooming and with eating. Does have severe dentition problems as well. He denies any chest pain. Denies any bleeding problems. He has had no further worsening in his neurologic status. Does have right upper extremity weakness, fine motor movement problems on the right side and right facial droop. This has been stable. Exam Vital Signs: Temperature 98.1 F 10/18/16 08:00 Pulse Rate 83 10/18/16 08:00 Respiratory Rate 16 10/18/16 08:00 Blood Pressure 136/89 10/18/16 08:00 Pulse Oximetry 96 10/18/16 08:00 Oxygen Delivery Method Room Air Height: 1.75 m Weight: 74.3 kg Body Mass Index: 24.2 - Constitutional Present: no acute distress Comments: The patient is awake, alert and oriented and in no acute distress. Pupils are equal. Has extremely poor dentition with several missing teeth and the remaining teeth in poor repair. The neck is supple. Chest: Clear to auscultation bilaterally. Cor: RR with no david, click nor murmur Abd: soft with normo-active bowel sounds. There are no masses, no tenderness and no guarding. Extremities: No edema is noted. Neuro: Reduced strength on extension and flexion at the right elbow. Fine motor movement markedly diminished on the right side. Right facial droop present. Speech is unchanged. Able to ambulate with walker safely. - Routine HEENT Exam Head: Present: normocephalic Eye: Present: EOMI, PERRL ENT: Present: mucous membranes dry. Absent: dentition normal - Routine Neck Exam Present: supple - Routine Respiratory Exam Present: CTA bilaterally - Routine Cardiovascular Exam Present: RRR, S1, S2, no murmur - Routine Abdominal Exam Present: soft, normoactive bowel sounds, non distended, non tender - Routine Extremities Exam Present: no edema - Routine Skin Exam Present: intact - Routine Neurological Exam Present: alert, motor deficit. Absent: oriented X3, CN II-XII intact - Routine Psychiatric Exam Present: cooperative, depressed. Absent: normal affect, normal thought process , good insight, good judgment Sepsis Assessment - Evaluation Sepsis screening result: No Definite Risk IRU A/P (1) Cerebral infarction Qualifiers: Cerebral infarction mechanism: thrombosis Precerebral and cerebral artery: middle cerebral artery Laterality of affected vessel: left Qualified Code(s) : I63.312 - Cerebral infarction due to thrombosis of left middle cerebral artery Current visit: Yes Status: Acute His neurologic status has been stable. Continues to demonstrate right upper extremity weakness. Is able to ambulate with walker. Has made improvement with regard to transfers and ambulation. Memory loss is a significant impediment to his improvement however. Safety issues remain. (2) Acute GI bleeding Current visit: Yes Status: Acute Hemoglobin has been stable. No evidence of further GI blood loss. He is back on his Plavix and aspirin. (3) Memory loss due to medical condition Current visit: Yes Status: Acute (4) Coronary artery disease Qualifiers: Coronary Disease-Associated Artery/Lesion type: [place] artery [place] vs. transplanted heart: [place] heart Associated angina: without angina Qualified Code(s): I25.10 - Atherosclerotic heart disease of [place] coronary artery without angina pectoris Current visit: Yes Status: Chronic Denies any chest discomfort or shortness of breath. (5) Acute blood loss anemia Current visit: Yes Status: Acute DVT Prophylaxis: SCD's Resuscitation Status: Full Code - Course Hospital Course: Michael Romo MD: 10/17/16 12:26 Continues to progress with therapy. No chest pain. Hemoglobin stable. Wants to go home. Memory loss is a barrier to his progress. 10/18/16 10:32 He wants to go home as soon as possible. Memory loss continues to be an impediment. He is improving with regard to transfers and ambulation. Able to ambulate with walker but not with cane safely. He agrees to use a walker at home. - Interventions to Obtain Goals PT Treatment Plan: Balance/Proprioception, Functional Activities, Gait Training , Patient/Family Education, Therapeutic Exercise OT Treatment Plan: ADL (Basic Care), Balance Training, IADL, Pt./Family Education, Ther. Exercise for ADL
--- NOTE | 2016-10-18 12:14 | IRU Team Meeting ---
IRU Team Meeting - Nursing Vital Signs: Vital Signs - 24 hr 10/17/16 15:00 10/17/16 20:14 10/18/16 08:00 Temperature 98.0 F 98.1 F 98.1 F Pulse Rate 65 67 83 Respiratory Rate 18 16 16 Blood Pressure 136/83 125/86 136/89 Pulse Oximetry 98 99 96 Current Medications: Allopurinol (Zyloprim) 450 mg PO DAILY [facility] Last Admin: 10/18/16 08:42 Dose: 450 mg Aspirin (Asa) 325 mg PO DAILY [facility] Last Admin: 10/18/16 08:40 Dose: 325 mg Atorvastatin Calcium (Lipitor) 80 mg PO HS [facility] Last Admin: 10/17/16 22:00 Dose: 80 mg Carvedilol (Coreg) 3.125 mg PO WB [facility] Last Admin: 10/18/16 08:41 Dose: 3.125 mg Clopidogrel Bisulfate (Plavix) 75 mg PO DAILY [facility] Last Admin: 10/18/16 08:41 Dose: 75 mg Cyanocobalamin (Vit. B-12) 500 mcg PO DAILY [facility] Last Admin: 10/18/16 08:41 Dose: 500 mcg Donepezil HCl (Aricept) 10 mg PO HS [facility] Last Admin: 10/17/16 22:00 Dose: 10 mg Doxazosin Mesylate (Cardura) 2 mg PO BID [facility] Last Admin: 10/18/16 08:41 Dose: 2 mg Folic Acid (Folate) 1 mg PO DAILY [facility] Last Admin: 10/18/16 08:42 Dose: 1 mg Rprxj-[id number] Ethyl Esters (Lovaza) 1 gm PO DAILY [facility] Last Admin: 10/18/16 08:40 Dose: 1 gm Pantoprazole Sodium (Protonix Tab) 40 mg PO ACBID [facility] Last Admin: 10/18/16 06:25 Dose: 40 mg Comments: He struggles with memory loss. No new neuro changes. He is impulsive at times. Wants to go home. No med changes. [facility], Poor dentition.Cog eval: perseveration, auditory comp is poor. Set in his home routine. Diet: on cardiac diet. Eating 100%. Lives alone but daughter lives close by. - Physical Therapy Supine to Sit Bed Mobility Ability: Modified Independent Sit to Supine Bed Mobility Ability: Modified Independent Comments: SBA with car transfers. With walker he is Mod I and with cane he is SBA. Would benefit from outpt PT. Safety concerns are noted. Memory is an issue. - Occupational Therapy Grooming Ability: Modified Independent Bathing Ability: Stand By Assist/Supervision Lower Body Dressing Comment: Mod I for many acitivities. Loss of balance and safety awareness are concerns. Would benefit from outpt OT. - Care Plan Anticipated Length of Stay: 2 Anticipated DC Destination: Home, Self Care Interventions/Goals: Will ask daughter to come in for instruction. Anticipate home with daughter near by in a couple of days. Barriers to progress: memory, impulsiveness, recent CVA Goals: Home safely with daughter training.
--- NOTE | 2016-10-18 14:19 | Progress Note ---
Subjective: Agustin is seen today in follow up for his recent CVA. He reports that he is "miserable" today because he is ready to go home but "they" won't let him, referring the the rehab team. Since his admission, he has openly expressed his dislike of being in IRU. He denies any other complaints including no chest pain , shortness of breath, abdominal pain, nausea, vomiting or dysuria. When asked how therapy is going, he states "It's therapy". Review of the notes indicates that there is a possibility of discharge to his home in the near future. He continues to struggle with impulsive behaviors and memory loss. He reports that he lives next to his daughter and does not have any concerns about going home. Case management continues to work on discharge planning. His appetite has been good and his bowels are moving. On exam, he is sitting in his recliner, watching TV. He is alert and orientated and in no apparent distress. Cardiac exam reveals regular rate and rhythm and lungs are clear to auscultation. Abdomen is soft, nontender with active bowel sounds. No edema noted to lower extremities. Recent labs on 10/17 revealed persistent anemia with hemoglobin at 9.8 and improving hypernatremia with sodium trending down at 145. Objective Vital signs: Temperature 98.1 F 10/18/16 08:00 Pulse Rate 83 10/18/16 08:00 Respiratory Rate 16 10/18/16 08:00 Blood Pressure 136/89 10/18/16 08:00 Pulse Oximetry 96 10/18/16 08:00 Oxygen Delivery Method Room Air Body Mass Index: 24.2 - Constitutional Present: no acute distress, well nourished, well developed, cooperative - Routine HEENT Exam Head: Present: normocephalic, atraumatic Eye: Present: PERRL. Absent: conjunctival icterus ENT: Present: mucous membranes moist - Routine Respiratory Exam Present: CTA bilaterally. Absent: stridor, wheezes, crackles - Routine Cardiovascular Exam Present: RRR, S1, S2 - Routine Abdominal Exam Present: soft, normoactive bowel sounds, non distended, non tender - Routine Extremities Exam Present: no edema, non tender, pulses intact Comments: limited ROM of right in light of recent CVA. No new neurologic changes. - Routine Back/Spine/Pelvis Exam Back/Spine: Absent: erythema - Routine Musculoskeletal Exam Musculoskeletal: Present: limited range of motion - Routine Skin Exam Present: intact, dry, warm, ecchymosis (bilateral arms - healing) - Routine Neurological Exam Present: alert, hearing grossly intact, facial asymmetry (right droop), normal speech - Routine Lymphatic Exam Lymphatic: Absent: lymphedema - Routine Psychiatric Exam Present: cooperative Comments: ready for discharge Results - Labs CBC & Chem 7: 10/17/16 04:15 10/17/16 04:15 Assessment and Plan (1) Cerebral infarction Current visit: Yes Status: Acute (2) Acute GI bleeding Current visit: Yes Status: Acute Resuscitation Status: Full Code Assessment and Plan: 10/18/16-Mirakian. Hypernatremia, acute. * Present on admission. Sodium 145 on 10/17. Continue to encourage fluid intake and monitor trends closely. Recheck BMP on 10/20 to monitor electrolytes and renal function. Hypokalemia, acute - RESOLVED. * Potassium 3.7 on 10/17. Will recheck BMP on 10/20 to monitor blood counts and electrolytes. CVA - 10/23, 10/25, 09/26. * Overall, doing well in therapy and eager for discharge. Anticipate discharge in near future. * No change. Continue ASA. Hemoglobin remains stable at 9.8 today. Will restart Plavix and monitor closely for signs of bleeding. Continue Lipitor at new dose (80mg) and Lovaza. Continue to encourage participation in therapies for improvement in strength and functional abilities. Blood loss anemia, related to GI bleed and history of GERD. * Hemoglobin stable at 9.8 on 10/17. Continue to monitor trends periodically throughout admission. Recommend follow up with PCP as outpatient following discharge. * Recent EGD by Dr. Leyva in 09/2016 showed evidence of esophagitis vs. neoplasm. Continue Protonix 40mg BID for treatment of esophageal ulcer and GI protection x 8 weeks per prior notes. Monitor closely for signs of GI bleed in light of reinitiation of Plavix. Will recheck CBC in AM to monitor blood counts. * Patient to follow up with Dr. Leyva in 1-2 months as an outpatient. B12 and folic acid deficiency anemia. * No change. Continue folic acid and cyanocobalamin. Hypertension. * No change. Blood pressure fairly well controlled. Continue carvedilol and doxazosin. Monitor closely as he had hypotension during recent hospitalization. CAD. * No change. See above treatments. Dementia, chronic. * No change. Continue home Aricept. Constipation. * No change. Bowel motivation as indicated with Colace and MOM. Gout, chronic. * No change. Continue home allopurinol. Sepsis Assessment - Evaluation Sepsis screening result: No Definite Risk Hospital Course Summary Disclaimer: The visit summary below is not to be considered part of the above Progress Note. Hospital Course: 10/14/16 - hospitalist consult Assessment CVA-10/23, 10/25, 09/26 Recent GI bleed Blood loss Anemia-related to recent GI bleed. 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 GERD-with evidence of esophagitis versus neoplasm on recent EGD (under the care of Dr. Leyva) Constipation Gout-on allopurinol Depression Plan Agree with admission to rehabilitation under the care of Dr. Romo. The hospitalist team will continue to follow patient for medical management throughout the patient's stay. CVA Continue aspirin. He is to restart Plavix on 10/16/16 if he has no further bleeding. Lipitor was increased to 80 mg in [place]. Continue Lovaza. Encourage PT/OT for strengthening Recent GI bleed Reported B12 and folate deficiency. Continue on folic acid and cyanocobalamin Continue pantoprazole 40 mg twice a day for GI protection. Monitor for evidence of bleeding. Will plan to resume Plavix as discussed above. Follow serial hemoglobin. To follow-up with Dr. Leyva in 1-2 months. GERD with esophagitis continue pantoprazole CAD/hypertension Continue carvedilol and doxazosin. Monitor closely as he had hypotension during recent hospitalization. Gout Continue allopurinol Dementia Continue Aricept 10/16/16 10:50-Mirakian. Hypernatremia, acute. * Present on admission. Sodium 147 today. Encourage fluid intake and monitor trends closely. Hypokalemia, acute. * Potassium 3.4 today. Will give KCl 20 mEq po now and recheck in AM. CVA - 10/23, 10/25, 09/26. * Continue ASA. Hemoglobin remains stable at 9.8 today. Will restart Plavix and monitor closely for signs of bleeding. Continue Lipitor at new dose (80mg) and Lovaza. Continue to encourage participation in therapies for improvement in strength and functional abilities. Blood loss anemia, related to GI bleed and history of GERD. * Recent EGD by Dr. Leyva in 09/2016 showed evidence of esophagitis vs. neoplasm. Continue Protonix 40mg BID for treatment of esophageal ulcer and GI protection x 8 weeks per prior notes. Monitor closely for signs of GI bleed in light of reinitiation of Plavix. Will recheck CBC in AM to monitor blood counts. * Patient to follow up with Dr. Leyva in 1-2 months as an outpatient. B12 and folic acid deficiency anemia. * Continue folic acid and cyanocobalamin. Hypertension. * Continue carvedilol and doxazosin. Monitor closely as he had hypotension during recent hospitalization. CAD. Dementia, chronic. * Continue home Aricept. Constipation. * Bowel motivation at indicated with Colace and MOM. Gout, chronic. * Continue home allopurinol. 10/18/16 14:25 Hypernatremia, acute. * Present on admission. Sodium 145 on 10/17. Continue to encourage fluid intake and monitor trends closely. Recheck BMP on 10/20 to monitor electrolytes and renal function. Hypokalemia, acute - RESOLVED. * Potassium 3.7 on 10/17. Will recheck BMP on 10/20 to monitor blood counts and electrolytes. CVA - 10/23, 10/25, 09/26. * Overall, doing well in therapy and eager for discharge. Anticipate discharge in near future. * No change. Continue ASA. Hemoglobin remains stable at 9.8 today. Will restart Plavix and monitor closely for signs of bleeding. Continue Lipitor at new dose (80mg) and Lovaza. Continue to encourage participation in therapies for improvement in strength and functional abilities. Blood loss anemia, related to GI bleed and history of GERD. * Hemoglobin stable at 9.8 on 10/17. Continue to monitor trends periodically throughout admission. Recommend follow up with PCP as outpatient following discharge. * Recent EGD by Dr. Leyva in 09/2016 showed evidence of esophagitis vs. neoplasm. Continue Protonix 40mg BID for treatment of esophageal ulcer and GI protection x 8 weeks per prior notes. Monitor closely for signs of GI bleed in light of reinitiation of Plavix. Will recheck CBC in AM to monitor blood counts. * Patient to follow up with Dr. Leyva in 1-2 months as an outpatient. B12 and folic acid deficiency anemia. * No change. Continue folic acid and cyanocobalamin. Hypertension. * No change. Blood pressure fairly well controlled. Continue carvedilol and doxazosin. Monitor closely as he had hypotension during recent hospitalization. CAD. * No change. See above treatments. Dementia, chronic. * No change. Continue home Aricept. Constipation. * No change. Bowel motivation as indicated with Colace and MOM. Gout, chronic. * No change. Continue home allopurinol.
[2016-10-18 16:01] VITALS: BP 131/77; PULSE 71; O2SAT 99
--- NOTE | 2016-10-18 16:27 | Progress Note ---
Progress Note: It is our recommendation to the patient that he stay in another couple of days to work on balance and safety issues. He declines. His 2 daughters are here and agreed to take him home. He does agree to return to physical therapy as an outpatient.
--- NOTE | 2016-10-18 16:32 | Discharge Instructions ---
Discharge Plan - Med Rec/Dispo Referrals/Follow Up: KELLEY FRANK PA [Family Provider] - 1 Week (Please see Dr. Frank in about a week) Prescriptions: Continue Allopurinol 450 mg PO DAILY #0 Clopidogrel Bisulfate [Plavix] 75 mg PO DAILY #0 Carvedilol 1 tab PO DAILY #0 tab Dyke-3 Fatty Acids [Dyke-3] 1,000 mg PO DAILY Aspirin 1 tab PO DAILY Pantoprazole Tab [Protonix Tab] 1 tab PO ACBID Doxazosin [Cardura] 2 mg PO BID Cyanocobalamin/Folic Acid [Vitamin C81-Xmsca Acid Tablet] 1 tab PO DAILY #0 Donepezil HCl 10 mg PO HS #0 tab Atorvastatin Calcium 1 tab PO HS #30 tablet Discharge Instructions/Outpatient Orders: Final Provider Discharge Instructions Location: Determined By Patient - Disposition 01 Discharged Home, Self-Care
--- NOTE | 2016-10-18 16:40 | Discharge Summary ---
Discharge Information Date of admission: 10/14/16 10:51 Anticipated date of discharge: 10/18/16 Attending Physician: Michael Romo MD Primary care physician: KELLEY FRANK Consults: 10/14/16 12:33 Physician Consult [CONS] Routine Consulting Provider: Meghann Vargas Reason For Exam: Medical Management Ordering Provider has Notified Manager Enterprise: Yes - Discharge Diagnosis Discharge Diagnosis: 1. 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 Atherosclerotic heart disease 3. Recent GI bleed with esophageal ulcer on EGD 4. Acute blood loss anemia 5. Memory loss - Laboratory Labs: 10/17/16 04:15 10/17/16 04:15 History of Present Illness HPI: 10/18/16 16:38 Mr. Rubi developed slurred speech and right-sided facial droop and presented to his daughter's house next door to where he lives. He was a mainly transported to [facility] and subsequent transfer to via [facility] in [place]. At that location he was noted to have an acute left internal capsular infarction resulting in right hemiparesis. Continues to have some slurred speech , right facial droop and right upper extremity weakness. In addition, he developed an acute GI bleed while in [place]. EGD demonstrated the presence of a lower esophageal ulcer. Neoplasm cannot be ruled out. It was recommended by the grades 7 8 tutor that he stay on Protonix 40 mg twice daily for at least 8 weeks after that event. He was felt to be a good candidate for acute inpatient rehabilitation and was transferred to [facility] IRU for an intensive individualized multidisciplinary plan of care that he could return home safely. Hospital Course This is a general summary of the patient's hospital course. For more details refer to the complete medical record. After having been stabilized in [place] he was transferred to [facility] inpatient rehabilitation unit. He received physical therapy and occupational therapy as well as assessment by speech. There was concern about safety for his swallowing. He was recommended that he remain on a mechanical soft diet. The patient did improve on therapy. He was felt to be stable for walking with a walker but was not stable for walking with a quad cane. His hemoglobin was monitored. Had no further evidence of GI bleeding nor chest pain. His Plavix and aspirin were held during the initial portion of his stay and then restarted per recommendation of [place]. The hospitalist service was consulted and followed him with us. We recommended that we continue working with him for the next couple of days. However he demanded to go home. His daughters did arrive. They were counseled. We recommended a cardiac diet. In addition we recommend outpatient physical therapy and he agrees to do that. He is dismissed in improved condition but still with some unsteadiness on his feet on 10/18/2016. He will require additional physical therapy and occupational therapy for safety. In addition he is being dismissed with a walker. He was switched from simvastatin to atorvastatin [place] he continues on that. Remains on Protonix which he needs to stay on for 68 weeks twice daily. He will likely need to be reevaluated by GI at some point because of the abnormality in the lower esophagus. He was instructed to see his personal physician Dr. Frank in about a week. Hospital course: 10/14/16 - hospitalist consult Assessment CVA-10/23, 10/25, 09/26 Recent GI bleed Blood loss Anemia-related to recent GI bleed. 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 GERD-with evidence of esophagitis versus neoplasm on recent EGD (under the care of Dr. Leyva) Constipation Gout-on allopurinol Depression Plan Agree with admission to rehabilitation under the care of Dr. Romo. The hospitalist team will continue to follow patient for medical management throughout the patient's stay. CVA Continue aspirin. He is to restart Plavix on 10/16/16 if he has no further bleeding. Lipitor was increased to 80 mg in [place]. Continue Lovaza. Encourage PT/OT for strengthening Recent GI bleed Reported B12 and folate deficiency. Continue on folic acid and cyanocobalamin Continue pantoprazole 40 mg twice a day for GI protection. Monitor for evidence of bleeding. Will plan to resume Plavix as discussed above. Follow serial hemoglobin. To follow-up with Dr. Leyva in 1-2 months. GERD with esophagitis continue pantoprazole CAD/hypertension Continue carvedilol and doxazosin. Monitor closely as he had hypotension during recent hospitalization. Gout Continue allopurinol Dementia Continue Aricept 10/16/16 10:50-Mirakian. Hypernatremia, acute. * Present on admission. Sodium 147 today. Encourage fluid intake and monitor trends closely. Hypokalemia, acute. * Potassium 3.4 today. Will give KCl 20 mEq po now and recheck in AM. CVA - 10/23, 10/25, 09/26. * Continue ASA. Hemoglobin remains stable at 9.8 today. Will restart Plavix and monitor closely for signs of bleeding. Continue Lipitor at new dose (80mg) and Lovaza. Continue to encourage participation in therapies for improvement in strength and functional abilities. Blood loss anemia, related to GI bleed and history of GERD. * Recent EGD by Dr. Leyva in 09/2016 showed evidence of esophagitis vs. neoplasm. Continue Protonix 40mg BID for treatment of esophageal ulcer and GI protection x 8 weeks per prior notes. Monitor closely for signs of GI bleed in light of reinitiation of Plavix. Will recheck CBC in AM to monitor blood counts. * Patient to follow up with Dr. Leyva in 1-2 months as an outpatient. B12 and folic acid deficiency anemia. * Continue folic acid and cyanocobalamin. Hypertension. * Continue carvedilol and doxazosin. Monitor closely as he had hypotension during recent hospitalization. CAD. Dementia, chronic. * Continue home Aricept. Constipation. * Bowel motivation at indicated with Colace and MOM. Gout, chronic. * Continue home allopurinol. 10/18/16 14:25 Hypernatremia, acute. * Present on admission. Sodium 145 on 10/17. Continue to encourage fluid intake and monitor trends closely. Recheck BMP on 10/20 to monitor electrolytes and renal function. Hypokalemia, acute - RESOLVED. * Potassium 3.7 on 10/17. Will recheck BMP on 10/20 to monitor blood counts and electrolytes. CVA - 10/23, 10/25, 09/26. * Overall, doing well in therapy and eager for discharge. Anticipate discharge in near future. * No change. Continue ASA. Hemoglobin remains stable at 9.8 today. Will restart Plavix and monitor closely for signs of bleeding. Continue Lipitor at new dose (80mg) and Lovaza. Continue to encourage participation in therapies for improvement in strength and functional abilities. Blood loss anemia, related to GI bleed and history of GERD. * Hemoglobin stable at 9.8 on 10/17. Continue to monitor trends periodically throughout admission. Recommend follow up with PCP as outpatient following discharge. * Recent EGD by Dr. Leyva in 09/2016 showed evidence of esophagitis vs. neoplasm. Continue Protonix 40mg BID for treatment of esophageal ulcer and GI protection x 8 weeks per prior notes. Monitor closely for signs of GI bleed in light of reinitiation of Plavix. Will recheck CBC in AM to monitor blood counts. * Patient to follow up with Dr. Leyva in 1-2 months as an outpatient. B12 and folic acid deficiency anemia. * No change. Continue folic acid and cyanocobalamin. Hypertension. * No change. Blood pressure fairly well controlled. Continue carvedilol and doxazosin. Monitor closely as he had hypotension during recent hospitalization. CAD. * No change. See above treatments. Dementia, chronic. * No change. Continue home Aricept. Constipation. * No change. Bowel motivation as indicated with Colace and MOM. Gout, chronic. * No change. Continue home allopurinol. GI Prophylaxis: Protonix Discharge Plan - Med Rec/Dispo Referrals/Follow Up: KELLEY FRANK PA [Family Provider] - 1 Week (Please see Dr. Frank in about a week) Prescriptions: Continue Allopurinol 450 mg PO DAILY #0 Clopidogrel Bisulfate [Plavix] 75 mg PO DAILY #0 Carvedilol 1 tab PO DAILY #0 tab [place]-3 Fatty Acids [[place]-3] 1,000 mg PO DAILY Aspirin 1 tab PO DAILY Pantoprazole Tab [Protonix Tab] 1 tab PO ACBID Doxazosin [Cardura] 2 mg PO BID Cyanocobalamin/Folic Acid [Vitamin C16-Xbzqa Acid Tablet] 1 tab PO DAILY #0 Donepezil HCl 10 mg PO HS #0 tab Atorvastatin Calcium 1 tab PO HS #30 tablet Discharge Instructions/Outpatient Orders: Final Provider Discharge Instructions Location: Determined By Patient
--- NOTE | 2016-10-18 17:16 | Progress Note ---
Progress Note: Outpatient appointments have been made for Mr. Rubi to see physical therapy and occupational therapy on October 21 at 2 PM and 3 PM with a check-in time of 1 :45 PM.
== END 2016-10-18 17:29 | disposition home or self-care (01) | DRG 57 ==
PROVIDERS: ADMIT Internal Medicine; ATTEND Internal Medicine

== ENCOUNTER 2017-08-17 15:40 | Inpatient (IN) ==
[2017-08-17] MEDS ORDERED: ENOXAPARIN 40 MG/0.4 ML INJECTION SQ SCH (16:00)
[2017-08-17 18:22] VITALS: BMI 22.4
[2017-08-17] MEDS: SALINE FLUSH 10ml SYRINGE IV PRN (19:30)
[2017-08-17] MEDS: HYDRALAZINE 20 MG/ML INJECTION IVP PRN (19:34)
[2017-08-17] MEDS: ENOXAPARIN 40 MG/0.4 ML INJECTION SQ SCH (21:34)
[2017-08-17] MEDS: LISINOPRIL 20 MG TABLET PEG SCH (21:35)
[2017-08-17] MEDS: DONEPEZIL 10 MG TABLET PEG SCH (21:35)
[2017-08-17] MEDS: FAMOTIDINE 20 MG TABLET PEG SCH (21:35)
[2017-08-17] MEDS: ATORVASTATIN 40 MG TABLET PEG SCH (21:35)
[2017-08-18] MEDS ORDERED: PANTOPRAZOLE 40 MG TABLET PO SCH (06:30)
[2017-08-18] MEDS ORDERED: CARVEDILOL 3.125 MG TABLET PEG SCH (09:00)
[2017-08-18] MEDS: ALLOPURINOL 300 MG TABLET PEG SCH (10:16)
[2017-08-18] MEDS: CLOPIDOGREL 75 MG TABLET PEG SCH (10:16)
[2017-08-18] MEDS: AMLODIPINE 5 MG TABLET PEG SCH (10:16)
[2017-08-18] MEDS: LISINOPRIL 20 MG TABLET PEG SCH ×2 (10:17→21:44)
[2017-08-18] MEDS: ASPIRIN *EC* 81 MG TABLET PO SCH (10:17)
[2017-08-18] MEDS: COLCHICINE 0.6 MG TABLET PEG SCH (10:17)
[2017-08-18] MEDS: FAMOTIDINE 20 MG TABLET PEG SCH ×2 (10:17→21:44)
[2017-08-18] MEDS: DULOXETINE 60 MG CAPSULE PO SCH (10:17)
--- NOTE | 2017-08-18 10:47 | Consult Note ---
Consult Information - Data of Consult Consult date: 08/18/17 Requesting Physician: Akash Mei MD Primary Care Provider: OCTAVIANO Smith - Consult Narrative Reason for consult: Management of medical co-morbidities, s/p stroke et. al History of present illness: History of Present Illness HPI: 08/16/17 Agustin is a 61 yr old male who has unfortunately had 3 previous strokes in 2012 , 2014, and 2016. He does chronically have some mild right sided weakness. On the morning of August 11, 2017 His daughter went to check on him and he was found to be disoriented with confusion and new onset aphasia. He was taken to [place] emergency room where he was evaluated and diagnosed with an acute CVA. He did undergo further workup including echocardiogram, carotid Doppler and CT scan of the brain. During the night of 08/15 patient was found laying on the bathroom floor following an unwitnessed fall. Since that time, his dysphagia and a aphasia has become worse. Patient had been tolerating thickened liquids and soft diet until yesterday 08/15. Given the significant worsening of his dysphagia, [facility] Hospitalists services were contacted and accepted patient for direct admission to discuss feeding tube placement with a plan for inpatient rehabilitation. He is seen on arrival to [facility] with his 2 adult daughters who are share the DPOA at the bedside. All history is obtained from daughters given patients level of aphasia. They report up until 08/15/17 patient was able to speak as well as take in oral intake without difficulty. Since his fall, he has deteriorated and is unable to verbally respond to questions, although he does follow commands appropriately. His dysphagia has become worsened to the point that he is unable to control his secretions and saliva. We did discuss advance directives and he is a Full Code. Patient admitted as a direct admit outpatient observation under the care of Dr. Vargas Given findings of recent unwitnessed fall. A CT scan of the brain was obtained on admission. There was no evidence of acute intracranial hemorrhage or extension of infarcts. It did reveal multiple old infarcts as well as a small area of new ischemia. Telemetry was monitored- a 10 beat run of VT was noted. Surgery consult for PEG. Patient does remain nothing by mouth given his level of severe dysphagia. He has difficulty managing saliva 08/17/17- Discharge/Transfer to IRU MRI of the brain this morning did reveal an acute MCA stroke without evidence of hemorrhagic transformation. We will initiate Lovenox 40 milligrams subcutaneous daily. however will likely be able to resume ASA and Plavix via tube later. Did speak with daughter, she does indicate patient has not been compliant over the past weeks to months with his home medications. Plan to ensure to IRU for PT, OT and speech therapy 08/18/2017 Agustin is seen today in follow-up. He is nonverbal, makes poor eye contact, and demonstrates a flat affect. He is able to follow commands when asked. He is moving his extremities spontaneously. Continues to have difficulty managing his secretions. Dr. June did see the patient this morning and also discussed the case with Dr. Vargas. Tube feeding to be started today, titrated up as tolerated. Discussed with RN, she denies any acute concerns. Chart is reviewed for collateral information. Past Medical History Medical History: Medical History (Last Reviewed 08/18/17 @ 10:52 by Jaqueline Kay APRN) Depression Gout HTN (hypertension) History of GI bleed History of heart attack History of stroke Memory loss Medical History Updates: Echocardiogram- EF 50-55%, mild aortic valve leaking, mild mitral regurgitation. 08/11/17. Carotid Doppler-no evidence of significant atherosclertic stenosis. 08/11/17. History of esophageal stricture status post dilatation Surgical History: Bilateral inguinal Hernia repair- [facility]. Esophageal dilatation. cardiac catheterization with stent placement 2009. LINQ implant- Dr Zapien Family History: Family History (Last Updated 03/17/17 @ 09:25 by Davida Mehta Jasmyne) Brother Diabetes Mother Uterine cancer Family History: As Above - Social History Smoking status: Former smoker Substance use type: does not use Alcohol intake frequency: does not drink Housing: house Current residence: Apartment/Private Home Review of Systems ROS unobtainable: due to mental status (patient is nonverbal) Medications Home Medications Medication Instructions Recorded Confirmed Type Carvedilol 1 tab PO DAILY #0 tab 12/09/14 08/17/17 History [place]-3 Fatty Acids [[place]-3] 1,000 mg PO DAILY 10/03/16 08/17/17 History Pantoprazole Tab [Protonix Tab] 1 tab PO DAILY 10/14/16 08/17/17 History Atorvastatin Calcium 1 tab PO HS #30 tab 10/18/16 08/17/17 Rx Cardura (doxazosin) 2 mg tablet 4 mg PO BID tab 12/27/16 08/17/17 History Cymbalta (duloxetine) 60 mg 60 mg PO DAILY cap 12/27/16 08/17/17 History capsule,delayed release Nitrostat (nitroglycerin) 0.4 mg 0.4 mg SL Q5M PRN 12/27/16 08/17/17 History sublingual tablet Zestril (lisinopril) 40 mg tablet 20 mg PO BID tab 12/27/16 08/17/17 History Aricept (donepezil) 10 mg tablet 10 mg PO HS #30 tab 03/17/17 08/17/17 Rx Allopurinol [Zyloprim] 300 mg PO DAILY 08/16/17 08/17/17 History Amlodipine [Norvasc] 5 mg PO DAILY 08/16/17 08/17/17 History Aspirin [Ecotrin] 81 mg PO DAILY 08/16/17 08/17/17 History Adian/Vit B12/Folic Acid/Vit B6 1 tab PO DAILY 08/16/17 08/17/17 History [Folic Acid-Vit B6-Vit B12 Tab] Clopidogrel [Plavix] 1 tab PO DAILY 08/16/17 08/17/17 History Colchicine [Colcrys] 0.6 mg PO DAILY 08/16/17 08/17/17 History Allergies Allergy/AdvReac Type Severity Reaction Status Date / Time Penicillins AdvReac Mild Verified 03/17/17 09:26 Exam Vital Signs: Temperature 98.9 F 08/18/17 08:00 Pulse Rate 92 08/18/17 08:00 Respiratory Rate 18 08/18/17 08:00 Blood Pressure 159/102 H 08/18/17 08:00 Pulse Oximetry 95 08/18/17 08:00 Height/Weight/BMI: Height 1.75 m Weight 68.7 kg Body Mass Index 22.4 Comments: Gen.: Patient is awake and alert. He appears quite depressed, poor eye contact. He is following commands however. Head: Atraumatic, normocephalic ENT: He is having difficulty managing oral secretions. External ear nose and throat are atraumatic. Neck: Supple. No cervical lymphadenopathy. Cardiovascular: S1, S2. No appreciable murmurs. No edema. Pulm: Lungs are clear to auscultation bilaterally. Respirations even, unlabored. Abdomen: soft, nontender, nondistended. Active 4 quadrants. G-tube site looks good Extremities: No edema, cyanosis, clubbing. Psych: Very flat, depressed affect. Poor eye contact. Neuro: Patient is awake and alert. No obvious facial droop. He remains nonverbal. He is moving all extremities. Generalized weakness is noted. Results - Labs CBC & Chem 7: 08/18/17 13:26 Labs: Reviewed. Assessment and Plan (1) Cerebral infarction Current visit: No Status: Acute Assessment and Plan: Impression: Acute CVA- 08/11/17 (Admitted at [place], transfer to [facility] 08/16/17) Dysphagia Aphasia Hx of multiple CVA HTN Coronary artery disease Depression Hx Gout Medication non-compliance S/P PEG tube placement 08/17/17 Plan: 08/18/2017-Med Mgmt Consult: Agree with IRU admission. PT/OT/ST. NPO-TF per PEG tube. BP running high, but pt. got meds late today- avoid excessive lowering. Watch BP for now. May need to increase Coreg if BP remains elevated. Will order Q 4 hour vitals. Patient was not consistently taking ASA/Plavix, so will continue those for now per neurology recommendations. Continue supportive medications. He appears quite depressed. Will add Remeron, low dose, to Cymbalta. We may need psychiatry assessment if persists. Suspect this could be a large factor of his poor medication compliance. PEG tube is doing well-start TF today and monitor for any GI intolerance. HX of esophageal stricture- continue acid-blockers for GI protection. LMWH for DVT px. Thank you for the consult- we will follow this patient with you. DVT Prophylaxis: Lovenox GI Prophylaxis: Pepcid Resuscitation Status: Full Code - Physician Narrative Physician: Meghann Vargas MD Narrative: Date: 08/18/17 Time: 2100 I have independently evaluated and examined this patient. I reviewed the chart, the patient's history, and the GOLD PROSPECTOR/PA's documented findings as above. We discussed and formulated the assessment and plan as above with additions as below: Mr. Rubi was seen with daughters at the bedside. He mumbled yes on one occasion but otherwise nodded his head in response to questions indicating no pain or nausea. Daughters report that he has been coughing occasionally and spitting up saliva more frequently today than usual but has otherwise appeared to tolerate low-volume tube feedings well. They also report that he ambulated in the halls today. NAD, spits occasionally Respirations nonlabored, decreased airflow Active bowel sounds, abdomen soft, nontender Discussed with Dr. June earlier [id number] tube feedings initiated. Blood pressure slightly elevated-most recent reading 144/96; acceptable in james- infarct time period although patient is now one week out. Anticipate resuming Doxazosin tomorrow if pressures remain elevated. Aspirin/Plavix resumed-plan evaluation of Plavix activity after he is on it consistently for 10-14 days. Continue Lovenox for DVT prophylaxis. Hospital Course Summary Disclaimer: The visit summary below is not to be considered part of the above Progress Note. Hospital Course: Impression: Acute CVA- 08/11/17 (Admitted at [place], transfer to [facility] 08/16/17) Dysphagia Aphasia Hx of multiple CVA HTN Coronary artery disease Depression Hx Gout Medication non-compliance S/P PEG tube placement 08/17/17 Plan: 08/18/2017-Med Mgmt Consult: Agree with IRU admission. PT/OT/ST. NPO-TF per PEG tube. BP running high, but pt. got meds late today- avoid excessive lowering. Watch BP for now. May need to increase Coreg if BP remains elevated. Will order Q 4 hour vitals. Patient was not consistently taking ASA/Plavix, so will continue those for now per neurology recommendations. Continue supportive medications. He appears quite depressed. Will add Remeron, low dose, to Cymbalta. We may need psychiatry assessment if persists. Suspect this could be a large factor of his poor medication compliance. PEG tube is doing well-start TF today and monitor for any GI intolerance. HX of esophageal stricture- continue PPI for GI protection. LMWH for DVT px. Thank you for the consult- we will follow this patient with you.
--- NOTE | 2017-08-18 10:56 | IRU History & Physical Report ---
HPI IRU Date: Date: 08/18/17 Time: 1048 HPI: This 61-year-old gentleman has been admitted to the rehabilitation unit for management of a recent exacerbation of his stroke. He has had 3 previous strokes in 2012 2014 and 2016. August 11 of this year. His daughter found him increased disorientation, confusion. He is no longer tolerating food or liquids and had a feeding tube placed by Dr. Tristan on 08/17/2017. Since his fall 3 days ago, his condition has deteriorated. [facility] Patient Stated Medical History Cerebrovascular Accident Yes: 10/2012, 10/2014-right sided weakness, 2016 , 08/2017 Dementia Yes Hearing Loss Yes Coronary Artery Disease Yes Hypertension Yes Myocardial Infarction Yes: 2009 Sleep Apnea No Constipation No Gastroesophageal Reflux Yes Disease Other GI Yes: GASTRIC HEMORRHAGE PER FAMILY Hx Incontinence No Clotting Problems Yes: saw dr white and added vitamins to help Other Musculoskeletal Yes: gout, RIGHT SIDED WEAKNESS FROM CVA Depression Yes Clinic Medical History (Last Updated 08/16/17 @ 14:03 by Maria Fernanda Ford, SHIRA) Depression (Acute Medical) Gout (Acute Medical) HTN (hypertension) (Acute Medical) History of GI bleed (Acute Medical) History of heart attack (Acute Medical) History of stroke (Acute Medical) Memory loss (Acute Medical) Medical History Updates: Echocardiogram- EF 50-55%, mild aortic valve leaking, mild mitral regurgitation. 08/11/17. Carotid Doppler-no evidence of significant atherosclertic stenosis. 08/11/17 Surgical History: Bilateral inguinal Hernia repair- [facility]. Esophageal dilatation. cardiac catheterization with stent placement 2009. LINQ implant- Dr Zapien Family History: Family History (Last Updated 03/17/17 @ 09:25 by Davida Mehta [facility]) Brother Diabetes Mother Uterine cancer - Social History Smoking status: Former smoker second hand exposure: No Substance use type: does not use Alcohol intake: former Alcohol intake frequency: does not drink Housing: house Household members: spouse Current occupational status: previously employed Current residence: [place] Review of Systems ROS unobtainable: due to mental status Medications Home Medications Medication Instructions Recorded Confirmed Type Carvedilol 1 tab PO DAILY #0 tab 12/09/14 08/17/17 History [place]-3 Fatty Acids [[place]-3] 1,000 mg PO DAILY 10/03/16 08/17/17 History Pantoprazole Tab [Protonix Tab] 1 tab PO DAILY 10/14/16 08/17/17 History Atorvastatin Calcium 1 tab PO HS #30 tab 10/18/16 08/17/17 Rx Cardura (doxazosin) 2 mg tablet 4 mg PO BID tab 12/27/16 08/17/17 History Cymbalta (duloxetine) 60 mg 60 mg PO DAILY cap 12/27/16 08/17/17 History capsule,delayed release Nitrostat (nitroglycerin) 0.4 mg 0.4 mg SL Q5M PRN 12/27/16 08/17/17 History sublingual tablet Zestril (lisinopril) 40 mg tablet 20 mg PO BID tab 12/27/16 08/17/17 History Aricept (donepezil) 10 mg tablet 10 mg PO HS #30 tab 03/17/17 08/17/17 Rx Allopurinol [Zyloprim] 300 mg PO DAILY 08/16/17 08/17/17 History Amlodipine [Norvasc] 5 mg PO DAILY 08/16/17 08/17/17 History Aspirin [Ecotrin] 81 mg PO DAILY 08/16/17 08/17/17 History Aidan/Vit B12/Folic Acid/Vit B6 1 tab PO DAILY 08/16/17 08/17/17 History [Folic Acid-Vit B6-Vit B12 Tab] Clopidogrel [Plavix] 1 tab PO DAILY 08/16/17 08/17/17 History Colchicine [Colcrys] 0.6 mg PO DAILY 08/16/17 08/17/17 History Allergies Allergy/AdvReac Type Severity Reaction Status Date / Time Penicillins AdvReac Mild Verified 03/17/17 09:26 Exam Vital Signs: Temperature 98.9 F 08/18/17 08:00 Pulse Rate 92 08/18/17 08:00 Respiratory Rate 18 08/18/17 08:00 Blood Pressure 159/102 H 08/18/17 08:00 Pulse Oximetry 95 08/18/17 08:00 Height/Weight/BMI: Height 1.75 m Weight 68.7 kg Body Mass Index 22.4 - Constitutional Present: no acute distress - Routine HEENT Exam Head: Present: normocephalic - Routine Cardiovascular Exam Present: RRR - Routine Abdominal Exam Present: soft - Routine Neurological Exam Present: altered mental status Not able to talk or respond to questions IRU A/P Resuscitation Status: Full Code - Course Hospital Course: Akash Mei MD: - Interventions to Obtain Goals PT Treatment Plan: Balance/Proprioception, Functional Activities, Gait Training , Patient/Family Education, Therapeutic Exercise OT Treatment Plan: Balance Training Goals Progress/Modifications: maintain nutrition improve motor skills and speech
--- NOTE | 2017-08-18 11:50 | IRU 24Hr Post Admit Eval ---
24 Hr Post Admission Physical - Relevant Changes Reviewed: I have reviewed the patient's information and concur with the finding and results of the pre-admission screen. Certification: I certify the patient for rehabilitation. - Patient Condition (1) Cerebral infarction Status: Acute Qualifiers: Cerebral infarction mechanism: thrombosis Precerebral and cerebral artery: middle cerebral artery Laterality of affected vessel: left Qualified Code(s) : I63.312 - Cerebral infarction due to thrombosis of left middle cerebral artery Code(s): I63.9 - Cerebral infarction, unspecified (2) Dysphagia Status: Acute Code(s): R13.10 - Dysphagia, unspecified (3) Acute GI bleeding Status: Acute Code(s): K92.2 - Gastrointestinal hemorrhage, unspecified - Prior Functional Status Lives With: Alone Residence Type: Apartment/Private Home - Current Functional Status Failed Alternative Therapy: Arrived from Acute Care Patient Requirements: The patient requires oversight by rehabilitation physician to manage their rehabilitation treatment plan and multidisciplinary approach to care that can only be provided in an IRF and requires a multidisciplinary approach to care, provided by professional PTs, OTs, STs, dieticians, RTs, rehabilitation nurses and is not available in lesser levels of care. Limitations Req: Mobility Impairment, ADL Impairment, Cognitive Impairment Speech Therapy Minutes: 90 Physical Therapy Minutes: 90 Occupational Therapy Minutes: 90 Therapy: The patient is to receive therapy at least 5 days a week. - Complications/Comorbidities Barriers to Discharge: Weakness, Balance, Endurance, Comprehension - Plan to Avoid Complications Plan to Avoid Complications: The patient cannot receive this care in a lesser intensive setting such as Group Home or Outpatient Therapy due to the patient requiring the following .
--- NOTE | 2017-08-18 11:58 | IRU Plan of Care ---
IRU Overall Plan of Care - Patient Impairments (1) Cerebral infarction Qualifiers: Cerebral infarction mechanism: thrombosis Precerebral and cerebral artery: middle cerebral artery Laterality of affected vessel: left Qualified Code(s) : I63.312 - Cerebral infarction due to thrombosis of left middle cerebral artery Code(s): I63.9 - Cerebral infarction, unspecified Status: Acute (2) Dysphagia Code(s): R13.10 - Dysphagia, unspecified Status: Acute (3) Acute GI bleeding Code(s): K92.2 - Gastrointestinal hemorrhage, unspecified Status: Acute - Relevant Changes Relevant Changes: No Reviewed: I have reviewed the patient's information and concur with the finding and results of the pre-admission screen. Certification: I certify the patient for rehabilitation. - Medical Prognosis Medical Prognosis: Fair Vital Signs: Last Vital Signs Temp 98.9 F 08/18/17 08:00 Pulse 92 08/18/17 08:00 Resp 18 08/18/17 08:00 BP 159/102 H 08/18/17 08:00 Pulse Ox 95 08/18/17 08:00 - Anticipated Interventions Anticipated Interventions: The patient requires inpatient IRF care for PT, OT, and/or ST for residuals remaining from [] resulting in muscular weakness and strength deficits. - Current Functional Status Failed Alternative Therapy: Arrived from Acute Care Patient Requires: The patient requires oversight by rehabilitation physician to manage their rehabilitation treatment plan and multidisciplinary approach to care that can only be provided in an IRF and requires a multidisciplinary approach to care, provided by professional PTs, OTs, STs, rehabilitation nurses, and may require STs, dieticians, and RTS. This is not available in lesser levels of care. Physical Therapy Minutes: 90 Occupational Therapy Minutes: 90 Therapy: The patient is to receive therapy at least [address] Treatment Plan: Communication Retraining, Cognitive Linguistic Tx ST Treatment Plan Duration: Two Weeks ST Treatment Plan Frequency: Five Times Per Week - Anticipated LOS/Outcomes Anticipated Functional Outcome: gain ability to eat and help with self care Anticipated Length of Stay (days): 14 Anticipated DC Destination: Home Health Service Home Safety Plan: The patient will be provided with the development of a Home Safety Plan for return to a home or home-like environment and and to ensure safety post discharge. - Plan to Avoid Complications Barriers to Attaining Goals: Weakness, Balance, Endurance, Comprehension Plan to Avoid Complications: The patient cannot receive this care in a lesser intensive setting such as Senior Care or Outpatient Therapy due to the patient requiring the following .
--- NOTE | 2017-08-18 12:01 | IRU Progress Note ---
- Subjective/Serverity of Illness Date: 08/18/17 Just starting therapy. appears stable Exam Vital Signs: Temperature 98.9 F 08/18/17 08:00 Pulse Rate 92 08/18/17 08:00 Respiratory Rate 18 08/18/17 08:00 Blood Pressure 159/102 H 08/18/17 08:00 Pulse Oximetry 95 08/18/17 08:00 Height/Weight/BMI: Height 1.75 m Weight 68.7 kg Body Mass Index 22.4 - Routine Neurological Exam Present: altered mental status not able to communicate - Routine Psychiatric Exam Present: unable to assess IRU A/P (1) Cerebral infarction Qualifiers: Cerebral infarction mechanism: thrombosis Precerebral and cerebral artery: middle cerebral artery Laterality of affected vessel: left Qualified Code(s) : I63.312 - Cerebral infarction due to thrombosis of left middle cerebral artery Current visit: No Status: Acute (2) Dysphagia Current visit: No Status: Acute (3) Acute GI bleeding Current visit: No Status: Acute monitor with cbc, etc DVT Prophylaxis: Lovenox Resuscitation Status: Full Code - Course Hospital Course: Akash Mei MD: - Interventions to Obtain Goals PT Treatment Plan: Balance/Proprioception, Functional Activities, Gait Training , Patient/Family Education, Therapeutic Exercise OT Treatment Plan: ADL (Basic Care), Balance Training, IADL, Pt./Family Education, Ther. Exercise for ADL
--- NOTE | 2017-08-18 13:46 | Progress Note ---
DATE 08/18/2017 HISTORY OF PRESENT ILLNESS The patient was transferred yesterday from the Surgical Unit to the Inpatient Rehabilitation Unit. Administration of water at 50 mL/hour through the percutaneous endoscopic gastrostomy tube was started yesterday afternoon. The patient has tolerated this infusion of water through the percutaneous endoscopic gastrostomy tube well. Administration of medications through the percutaneous endoscopic gastrostomy tube was also started late yesterday afternoon. The nurse reported the patient has been tolerating all this well. The patient has had a speech therapy visit this morning. The patient is nonverbal this morning. He makes poor eye contact. Speech therapy reports that the patient has been able to follow commands when asked. He is still having some difficulty managing his secretions. PHYSICAL EXAMINATION ABDOMEN: I did change dressings at the percutaneous endoscopic gastrostomy tube site today and I did inspect the percutaneous endoscopic gastrostomy tube site today. The percutaneous endoscopic gastrostomy tube site does have a satisfactory appearance at this time. There does not appear to have been any bleeding at this site since the operation. IMPRESSION 1. Three previous strokes in 2012, 2014 and 2016. 2. Acute cerebrovascular accident on 08/11/2017. 3. Oropharyngeal dysphagia thought to be associated with the acute cerebrovascular accident on 08/11/2017. 4. Status post esophagogastroduodenoscopy with directed placement of percutaneous endoscopic gastrostomy tube (percutaneous endoscopic gastrostomy) on 08/16/2017. PLAN I did speak with the dietitian this morning. The dietitian will help us determine the caloric needs for the patient. We are going to start tube feedings at this time. We will start with half-strength FiberSource HN. We will start with some initial continuous tube feedings and then increase the rate and the concentration of the tube feedings and then ultimately convert over from continuous feedings to bolus feedings. A plan for advancement of these tube feedings over the next few days was discussed with the dietitian today. Administration of tube feedings through the percutaneous endoscopic gastrostomy tube will be started this morning and advanced over the next few days. The patient will continue to receive administration of medications through the percutaneous endoscopic gastrostomy tube. I will continue to check the percutaneous endoscopic gastrostomy tube site at the abdomen and change dressings. [facility]
[2017-08-18] MEDS: ATORVASTATIN 40 MG TABLET PEG SCH (21:44)
[2017-08-18] MEDS: DONEPEZIL 10 MG TABLET PEG SCH (21:45)
[2017-08-18] MEDS: MIRTAZAPINE 15 MG SOLU-TAB PEG SCH (21:45)
[2017-08-18] MEDS: ENOXAPARIN 40 MG/0.4 ML INJECTION SQ SCH (21:49)
[2017-08-19] MEDS: HYDRALAZINE 20 MG/ML INJECTION IVP PRN (04:00)
[2017-08-19] MEDS: SALINE FLUSH 10ml SYRINGE IV PRN ×2 (04:14→20:47)
[2017-08-19] MEDS ORDERED: DOXAZOSIN 2 MG TABLET PO SCH (09:00)
[2017-08-19] MEDS: AMLODIPINE 5 MG TABLET PEG SCH (10:10)
[2017-08-19] MEDS: POTASSIUM CHLORIDE 20 MEQ/15 ML ORAL LIQUID PEG SCH ×2 (10:10→18:14)
[2017-08-19] MEDS: ALLOPURINOL 300 MG TABLET PEG SCH (10:10)
[2017-08-19] MEDS: CARVEDILOL 6.25 MG TABLET PEG SCH (10:11)
[2017-08-19] MEDS: CLOPIDOGREL 75 MG TABLET PEG SCH (10:11)
[2017-08-19] MEDS: DULOXETINE 60 MG CAPSULE PO SCH (10:12)
[2017-08-19] MEDS: DOXAZOSIN 1 MG TABLET PEG SCH (10:12)
[2017-08-19] MEDS: COLCHICINE 0.6 MG TABLET PEG SCH (10:12)
[2017-08-19] MEDS: LISINOPRIL 20 MG TABLET PEG SCH ×2 (10:13→20:45)
[2017-08-19] MEDS: FAMOTIDINE 20 MG TABLET PEG SCH ×2 (10:13→20:45)
[2017-08-19] MEDS: ASPIRIN *EC* 81 MG TABLET PO SCH (10:14)
--- NOTE | 2017-08-19 12:22 | Progress Note ---
- Date 08/19/17 Subjective: Agustin is seen today in follow up at nursing request. RN reports that he has been more somnolent today, and is having difficulty in participating with therapy. RN reports is having difficulty assessing if he is just excessively fatigued, or if he has had a status change. Patient is chronically nonverbal, but he was able to assist with pivot transfer back into bed today. Nursing reports that patient did ambulate quite a distance yesterday, and worked very hard with physical therapy. He was started on tube feeding. In addition, he had a large volume of family members, including multiple children, who were here most of the day and into the evening yesterday. Is concerned that he may be quite fatigued from all of the activities yesterday. I did go to see patient. He was in bed sleeping. He opened his eyes to verbal command. He was able to squeeze my finger with left hand, and did give me a thumbs up when requested. He was noted to have a bit of a cough; noted to be coarse. He does not appear short of air. Again, he has chronically nonverbal, so this does make assessment quite a bit more difficult. Also, yesterday he appeared very depressed and withdrawn, and did not interact much with me despite being alert. Nursing reports his blood pressure is currently a bit low. We did adjust his carvedilol up, and restarted at a low dose of Cardura. He was also started on low-dose Remeron last night to help with his significant depression. Objective Vital signs: Temperature 98.7 F 08/19/17 11:55 Pulse Rate 76 08/19/17 11:55 Respiratory Rate 20 08/19/17 11:55 Blood Pressure 105/69 08/19/17 11:55 Pulse Oximetry 92 08/19/17 11:55 Height/Weight/BMI: Height 1.75 m Weight 68.7 kg Body Mass Index 22.4 Comments: Gen.: Patient is somnolent, but arousable to verbal stimuli. He opens eyes to commands. Remains nonverbal. He does have chronic drooling, which has been an ongoing issue. ENT: External within normal limits. Again, chronic drooling. Cardiovascular: S1, S2. Regular rate and rhythm. No edema. Pulmonary: Scattered rhonchi throughout both lung ventura. He does have fairly good air flow. Course, nonproductive cough is noted. Does not appear to be in respiratory distress. Abdomen: Soft, mildly tender at PEG tube insertion site. Bowel Sounds are present. Extremities: No edema. Neuro: Chronically nonverbal. Chronic drooling. Right-sided weakness. He is a bit more somnolent today than yesterday. Results - Labs CBC & Chem 7: 08/18/17 13:26 08/19/17 03:58 Assessment and Plan (1) Cerebral infarction Current visit: No Status: Acute Assessment and Plan: Impression: Acute CVA- 08/11/17 (Admitted at [facility], transfer to [facility] 08/16/17) Dysphagia Aphasia Hx of multiple CVA HTN Coronary artery disease Depression Hx Gout Medication non-compliance S/P PEG tube placement 08/17/17 Plan: 08/19/2017 Seen acutely due to altered mental status. Somnolent, but arousable. Could be multiple factors in play. I suspect he is quite fatigued from extensive therapy, as well as family visitors. I have asked that therapy hold just for this morning only to allow him to rest. Nursing will help limit visitors to allow patient rest during the day. His blood pressure did significantly decline with medication changes made this morning. Hold Cardura. Repeat vitals in 1 hour. Need to rule out developing infection, pulmonary would be the most likely source as patient is at high risk for aspiration. He was started on tube feeding yesterday, and has difficulty managing oral secretions. Assessment CBC, chest x-ray now. Was started on low-dose Remeron last night to help with significant depression. This may also be sedating for him. We'll place order to hold this medication if patient is sedated. Again, unclear factor of moderately decreased mental status. If no clear source , and mental status does not improve, we could consider repeating CT of the head. He does have recent history of multiple infarcts, however, this was felt to be due to poor medication compliance with anticoagulants. His potassium is low, I ordered replacement this morning. Repeat labs in the morning. I have instructed nursing to call us if his status declined to he does not significantly improve. DVT Prophylaxis: Lovenox Resuscitation Status: Full Code - Physician Narrative Narrative: Date: 08/19/17 Time: 1218 Hospital Course Summary Disclaimer: The visit summary below is not to be considered part of the above Progress Note. Hospital Course: Impression: Acute CVA- 08/11/17 (Admitted at [facility], transfer to [facility] 08/16/17) Dysphagia Aphasia Hx of multiple CVA HTN Coronary artery disease Depression Hx Gout Medication non-compliance S/P PEG tube placement 08/17/17 Plan: 08/18/2017-Med Mgmt Consult: Agree with IRU admission. PT/OT/ST. NPO-TF per PEG tube. BP running high, but pt. got meds late today- avoid excessive lowering. Watch BP for now. May need to increase Coreg if BP remains elevated. Will order Q 4 hour vitals. Patient was not consistently taking ASA/Plavix, so will continue those for now per neurology recommendations. Continue supportive medications. He appears quite depressed. Will add Remeron, low dose, to Cymbalta. We may need psychiatry assessment if persists. Suspect this could be a large factor of his poor medication compliance. PEG tube is doing well-start TF today and monitor for any GI intolerance. HX of esophageal stricture- continue PPI for GI protection. LMWH for DVT px. Thank you for the consult- we will follow this patient with you. Plan: 08/19/2017 Seen acutely due to altered mental status. Somnolent, but arousable. Could be multiple factors in play. I suspect he is quite fatigued from extensive therapy, as well as family visitors. I have asked that therapy hold just for this morning only to allow him to rest. Nursing will help limit visitors to allow patient rest during the day. His blood pressure did significantly decline with medication changes made this morning. Hold Cardura. Repeat vitals in 1 hour. Need to rule out developing infection, pulmonary would be the most likely source as patient is at high risk for aspiration. He was started on tube feeding yesterday, and has difficulty managing oral secretions. Assessment CBC, chest x-ray now. Was started on low-dose Remeron last night to help with significant depression. This may also be sedating for him. We'll place order to hold this medication if patient is sedated. Again, unclear factor of moderately decreased mental status. If no clear source , and mental status does not improve, we could consider repeating CT of the head. He does have recent history of multiple infarcts, however, this was felt to be due to poor medication compliance with anticoagulants. His potassium is low, I ordered replacement this morning. Repeat labs in the morning. I have instructed nursing to call us if his status declined to he does not significantly improve.
[2017-08-19] MEDS: ATORVASTATIN 40 MG TABLET PEG SCH (20:44)
[2017-08-19] MEDS: DONEPEZIL 10 MG TABLET PEG SCH (20:45)
[2017-08-19] MEDS: MIRTAZAPINE 15 MG SOLU-TAB PEG SCH (20:46)
[2017-08-19] MEDS: ENOXAPARIN 40 MG/0.4 ML INJECTION SQ SCH (20:46)
[2017-08-20] MEDS: ALLOPURINOL 300 MG TABLET PEG SCH (10:04)
[2017-08-20] MEDS: CLOPIDOGREL 75 MG TABLET PEG SCH (10:05)
[2017-08-20] MEDS: AMLODIPINE 5 MG TABLET PEG SCH (10:05)
[2017-08-20] MEDS: ASPIRIN *EC* 81 MG TABLET PO SCH (10:05)
[2017-08-20] MEDS: CARVEDILOL 6.25 MG TABLET PEG SCH (10:05)
[2017-08-20] MEDS: FAMOTIDINE 20 MG TABLET PEG SCH ×2 (10:06→21:15)
[2017-08-20] MEDS: DULOXETINE 60 MG CAPSULE PO SCH (10:06)
[2017-08-20] MEDS: COLCHICINE 0.6 MG TABLET PEG SCH (10:06)
[2017-08-20] MEDS: LISINOPRIL 20 MG TABLET PEG SCH ×2 (10:11→21:18)
[2017-08-20] MEDS: POTASSIUM CHLORIDE 20 MEQ/15 ML ORAL LIQUID PEG SCH ×2 (10:13→18:30)
--- NOTE | 2017-08-20 10:59 | XRay Report ---
Indication: AMS, cough PROCEDURE: XR chest 1V: Encounter: Initial Comparison: August 12, 2017 Findings: The Lower lobe airspace disease. Left lung remains clear.. There is no pleural effusion or pneumothorax. The heart size, pulmonary vascularity and mediastinal contours are unchanged. Cardiac monitoring device. IMPRESSION: Right lower lobe atelectasis, pneumonia or aspiration. .
[2017-08-20] MEDS: MIRTAZAPINE 15 MG SOLU-TAB PEG SCH (21:15)
[2017-08-20] MEDS: ATORVASTATIN 40 MG TABLET PEG SCH (21:15)
[2017-08-20] MEDS: DONEPEZIL 10 MG TABLET PEG SCH (21:18)
[2017-08-20] MEDS: ENOXAPARIN 40 MG/0.4 ML INJECTION SQ SCH (21:18)
--- NOTE | 2017-08-21 06:59 | Progress Note ---
DATE 08/20/2017 HISTORY OF PRESENT ILLNESS The patient is up in his chair in his room on the Inpatient Rehabilitation Unit at this time. The nurses report that the patient has been tolerating full strength tube feedings at 50 mL per hour through the percutaneous endoscopic gastrostomy tube. Medication administration through the percutaneous endoscopic gastrostomy tube is also being performed. The patient seems to be tolerating all this well. He has a little bit of reflux if he is in bed with the head of the bed elevated 30 degrees. He seems to be tolerating the tube feedings and medication administration better at times when he is sitting straight up in a chair. PHYSICAL EXAM ABDOMEN: Dressings are in place over the percutaneous endoscopic gastrostomy tube site. There is no sign of any bleeding or drainage beneath the dressings. The dressings are not coming loose anywhere. The dressings were all just left in place today. IMPRESSION 1. Three previous strokes in 2012, 2014 and 2016. 2. Acute cerebrovascular accident on 08/11/2017. 3. Oropharyngeal dysphagia thought to be associated with the acute cerebrovascular accident on 08/11/2017. 4. Status post esophagogastroduodenoscopy with directed placement of percutaneous endoscopic gastrostomy tube (percutaneous endoscopic gastrostomy) on 08/16/2017. PLAN 1. Continue tube feedings with Jevity 1.2. Rate of administration of the tube feedings will gradually be advanced. The patient will eventually be converted to bolus feedings. Continue medication administration through the percutaneous endoscopic gastrostomy tube. I will continue to check the percutaneous endoscopic gastrostomy tube site at the abdomen and change dressings while the patient is in the hospital. [facility]
[2017-08-21] MEDS: CARVEDILOL 6.25 MG TABLET PEG SCH (09:15)
[2017-08-21] MEDS: POTASSIUM CHLORIDE 20 MEQ/15 ML ORAL LIQUID PEG SCH ×3 (09:15→17:56)
[2017-08-21] MEDS: ALLOPURINOL 300 MG TABLET PEG SCH (09:16)
[2017-08-21] MEDS: LISINOPRIL 20 MG TABLET PEG SCH ×2 (09:16→21:26)
[2017-08-21] MEDS: CLOPIDOGREL 75 MG TABLET PEG SCH (09:16)
[2017-08-21] MEDS: FAMOTIDINE 20 MG TABLET PEG SCH ×2 (09:16→21:26)
[2017-08-21] MEDS: DULOXETINE 60 MG CAPSULE PO SCH (09:16)
[2017-08-21] MEDS: AMLODIPINE 5 MG TABLET PEG SCH (09:16)
[2017-08-21] MEDS: COLCHICINE 0.6 MG TABLET PEG SCH (09:16)
[2017-08-21] MEDS: ASPIRIN 81 MG CHEWABLE TABLET PO SCH (09:19)
[2017-08-21] MEDS: SALINE FLUSH 10ml SYRINGE IV PRN ×2 (09:19→09:20)
--- NOTE | 2017-08-21 14:15 | IRU Progress Note ---
- Subjective/Serverity of Illness Date: 08/21/17 Mr. Rubi was evaluated in his room on inpatient rehabilitation. He is a phasic. He has significant drooling noted. I'm uncertain if there is an mainly can really provide to assist with that. He is receiving tube feedings and seems to be tolerating these well. He is able to cooperate and does obey commands adequately. He is able to squeeze both hands. I discussed his case with speech therapy. He is able to communicate somewhat with the alphabet board. He is cooperative and does obey commands as noted above. He has been a bit more somnolent. He was started on Remeron so that will be held. Update on medical issues we are actively monitoring and managing as follows: 1. New CVA superimposed on prior CVAs: Patient is cooperative with therapy. He remains on tube feedings. He remains aphasic. 2. Dysphagia: He is tolerating tube feedings adequately. 3. Benign essential hypertension: Blood pressures are reviewed and are adequately controlled. Exam Vital Signs: Temperature 98.8 F 08/21/17 12:00 Pulse Rate 64 08/21/17 12:00 Respiratory Rate 16 08/21/17 12:00 Blood Pressure 137/83 08/21/17 12:00 Pulse Oximetry 97 08/21/17 12:00 Height/Weight/BMI: Height 1.75 m Weight 68.7 kg Body Mass Index 22.4 - Constitutional Present: no acute distress, well developed, thin, disheveled, cooperative - Routine HEENT Exam Head: Present: normocephalic Eye: Present: EOMI ENT: Present: mucous membranes moist (much oral "drooling"), oropharynx clear - Routine Neck Exam Present: supple, full ROM - Routine Respiratory Exam Present: decreased breath sounds, CTA bilaterally. Absent: wheezes - Routine Cardiovascular Exam Present: RRR, S1, S2. Absent: murmur - Routine Abdominal Exam Present: soft, normoactive bowel sounds, non distended. Absent: tenderness - Routine Extremities Exam Present: no edema, normal capillary refill - Routine Skin Exam Present: dry, warm - Routine Neurological Exam Present: alert. 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 He is aphasic. - Routine Psychiatric Exam Present: cooperative. Absent: good insight, good judgment Results IRU - Labs Labs: Have reviewed other providers notes as well as labs etc. from the chart. IRU A/P (1) Cerebral infarction Qualifiers: Cerebral infarction mechanism: thrombosis Precerebral and cerebral artery: middle cerebral artery Laterality of affected vessel: left Qualified Code(s) : I63.312 - Cerebral infarction due to thrombosis of left middle cerebral artery Current visit: No Status: Acute (2) Dysphagia Qualifiers: Dysphagia type: oropharyngeal phase Qualified Code(s): R13.12 - Dysphagia, oropharyngeal phase Current visit: No Status: Acute (3) Benign essential hypertension Current visit: No Status: Chronic (4) Memory loss due to medical condition Current visit: No Status: Chronic DVT Prophylaxis: Lovenox Resuscitation Status: Full Code - Course Hospital Course: Akash Mei MD: - Interventions to Obtain Goals PT Treatment Plan: Balance/Proprioception, Functional Activities, Gait Training , Patient/Family Education, Therapeutic Exercise OT Treatment Plan: ADL (Basic Care), Balance Training, IADL, Pt./Family Education, Ther. Exercise for ADL Goals Progress/Modifications: Patient has had some increased somnolence. Remeron will be held. He is cooperative and tries to participate with therapy. On the positive side, he has been able to indicate with the alphabet board. He continues to be a phasic otherwise. Does have a lot of drooling. I considered placing him on a medication for this but I'm concerned about the possibility of urinary retention in this regard. His blood pressures are reviewed and are stable. He has not sustained any new neurologic events. Review of laboratory indicates improvement in his white count from 13,000 down to a normal level. His blood sugars are borderline elevated and are monitored carefully. He is tolerating his Plavix adequately. Continue to work with patient regarding speech therapy, occupational therapy and physical therapy.
[2017-08-21] MEDS: ENOXAPARIN 40 MG/0.4 ML INJECTION SQ SCH (21:25)
[2017-08-21] MEDS: DONEPEZIL 10 MG TABLET PEG SCH (21:26)
[2017-08-21] MEDS: ATORVASTATIN 40 MG TABLET PEG SCH (21:26)
[2017-08-21] MEDS: MIRTAZAPINE 15 MG SOLU-TAB PEG SCH (21:26)
[2017-08-22] MEDS: FAMOTIDINE 20 MG TABLET PEG SCH ×2 (09:52→20:54)
[2017-08-22] MEDS: COLCHICINE 0.6 MG TABLET PEG SCH (09:52)
[2017-08-22] MEDS: LISINOPRIL 20 MG TABLET PEG SCH ×2 (09:52→20:54)
[2017-08-22] MEDS: DULOXETINE 60 MG CAPSULE PO SCH (09:52)
[2017-08-22] MEDS: ASPIRIN 81 MG CHEWABLE TABLET PO SCH (09:52)
[2017-08-22] MEDS: AMLODIPINE 5 MG TABLET PEG SCH (09:52)
[2017-08-22] MEDS: CARVEDILOL 6.25 MG TABLET PEG SCH (09:52)
[2017-08-22] MEDS: ALLOPURINOL 300 MG TABLET PEG SCH (09:52)
[2017-08-22] MEDS: POTASSIUM CHLORIDE 20 MEQ/15 ML ORAL LIQUID PEG SCH ×2 (09:53→17:58)
[2017-08-22] MEDS: CLOPIDOGREL 75 MG TABLET PEG SCH (09:53)
[2017-08-22] MEDS: SALINE FLUSH 10ml SYRINGE IV PRN (09:53)
--- NOTE | 2017-08-22 11:10 | IRU Progress Note ---
- Subjective/Serverity of Illness Date: 08/22/17 Mr. Rubi was reassessed in his room on rehabilitation. He remains aphasic. However we used an alphabet board and via that mechanism, he indicates he does not have any particular questions or needs at this time. He is working with therapy. He is making progress with speech therapy. Physical therapy notes that he is more fatigued and requires more rest breaks. He is able to ambulate about 25 feet with a front-wheeled walker. Medically he seems stable. He is tolerating his tube feedings well. We continued to have the problem with secretions for which I do not know a good answer. Exam Vital Signs: Temperature 98.7 F 08/22/17 08:00 Pulse Rate 75 08/22/17 08:00 Respiratory Rate 16 08/22/17 08:00 Blood Pressure 157/80 H 08/22/17 08:00 Pulse Oximetry 91 08/22/17 08:00 Height/Weight/BMI: Height 1.75 m Weight 68.7 kg Body Mass Index 22.4 - Constitutional Present: no acute distress, well nourished, well developed, thin - Routine HEENT Exam Eye: Present: EOMI ENT: Present: mucous membranes moist - Routine Respiratory Exam Present: CTA bilaterally. Absent: wheezes - Routine Cardiovascular Exam Present: RRR, S1, S2. Absent: murmur - Routine Abdominal Exam Present: soft, normoactive bowel sounds, non distended. Absent: tenderness - Routine Extremities Exam Present: normal capillary refill - Routine Skin Exam Present: dry, warm - Routine Neurological Exam Present: alert, CN II-XII intact. Absent: oriented X3 aphasic - Routine Psychiatric Exam Present: normal affect IRU A/P (1) Cerebral infarction Qualifiers: Cerebral infarction mechanism: thrombosis Precerebral and cerebral artery: middle cerebral artery Laterality of affected vessel: left Qualified Code(s) : I63.312 - Cerebral infarction due to thrombosis of left middle cerebral artery Current visit: No Status: Acute Neurologically he seems stable at the present time. Continue working with therapy. (2) Dysphagia Qualifiers: Dysphagia type: oropharyngeal phase Qualified Code(s): R13.12 - Dysphagia, oropharyngeal phase Current visit: No Status: Acute Remains on tube feedings and tolerates these well. (3) Benign essential hypertension Current visit: No Status: Chronic (4) Memory loss due to medical condition Current visit: No Status: Chronic DVT Prophylaxis: Lovenox Resuscitation Status: Full Code - Course Hospital Course: Akash Mei MD: 08/22/17 11:09 Slow progress with therapies. Making progress with speech therapy. Improving with regard to transfers with moderate assistance required. - Interventions to Obtain Goals PT Treatment Plan: Balance/Proprioception, Functional Activities, Gait Training , Patient/Family Education, Therapeutic Exercise OT Treatment Plan: ADL (Basic Care), Balance Training, IADL, Pt./Family Education, Ther. Exercise for ADL Goals Progress/Modifications: Patient requiring more rest breaks. Otherwise he is progressing with therapy and we will continue the current plan.
--- NOTE | 2017-08-22 13:56 | IRU Team Meeting ---
IRU Team Meeting - Nursing Bladder Assistive Devices Utilized:: Absorbent Pad Bladder Management Level of Assist: Total Assistance Bladder Frequency of Accidents: No accidents Bowel Assistive Devices Utilized:: Absorbent Pad Bowel Management Level of Assist: Total Assistance Bowel Frequency of Accidents: 2 accidents this shift Vital Signs: Vital Signs - 24 hr 08/21/17 16:07 08/21/17 20:00 08/22/17 08:00 Temperature 97.6 F 98.4 F 98.7 F Pulse Rate 73 68 75 Respiratory Rate 18 20 16 Blood Pressure 155/86 H 147/90 H 157/80 H Pulse Oximetry 90 90 91 Current Medications: Allopurinol (Zyloprim) 300 mg PEG DAILY [facility] Last Admin: 08/22/17 09:52 Dose: 300 mg Amlodipine Besylate (Norvasc) 5 mg PEG DAILY [facility] Last Admin: 08/22/17 09:52 Dose: 5 mg Aspirin (Asa) 81 mg PO DAILY [facility] Last Admin: 08/22/17 09:52 Dose: 81 mg Atorvastatin Calcium (Lipitor) 80 mg PEG HS [facility] Last Admin: 08/21/17 21:26 Dose: 80 mg Carvedilol (Coreg) 6.25 mg PEG DAILY [facility] Last Admin: 08/22/17 09:52 Dose: 6.25 mg Clopidogrel Bisulfate (Plavix) 75 mg PEG DAILY [facility] Last Admin: 08/22/17 09:53 Dose: 75 mg Colchicine (Colcrys) 0.6 mg PEG DAILY [facility] Last Admin: 08/22/17 09:52 Dose: 0.6 mg Donepezil HCl (Aricept 10 Mg) 10 mg PEG HS [facility] Last Admin: 08/21/17 21:26 Dose: 10 mg Doxazosin Mesylate (Cardura) 1 mg PEG BID [facility] Last Admin: 08/19/17 10:12 Dose: 1 mg Duloxetine HCl (Cymbalta) 60 mg PO DAILY [facility] Last Admin: 08/22/17 09:52 Dose: 60 mg Enoxaparin Sodium (Lovenox) 40 mg SQ 2100 [facility] Last Admin: 08/21/17 21:25 Dose: 40 mg Famotidine (Pepcid) 20 mg PEG BID [facility] Last Admin: 08/22/17 09:52 Dose: 20 mg Hydralazine HCl (Apresoline) 5 - 10 mg IVP Q4H PRN PRN Reason: Hypertension Last Admin: 08/19/17 04:00 Dose: 5 mg Lisinopril (Prinivil) 20 mg PEG BID [facility] Last Admin: 08/22/17 09:52 Dose: 20 mg Mirtazapine (Remeron Solu-Tab) 7.5 mg PEG HS [facility] Last Admin: 08/21/17 21:26 Dose: 7.5 mg Potassium Chloride (Kcl Oral Liq 20 Meq/15 Ml) 40 meq PEG BIDWM [facility] Last Admin: 08/22/17 09:53 Dose: 40 meq Sodium Chloride (Iv Flush) 10 ml IV PRN PRN PRN Reason: Flushing Last Admin: 08/22/17 09:53 Dose: 10 ml Current Medical Issues: CVA, hypertension, tube feedings, incontinent of bowel and bladder, excess somnolence Comments: I certify that I personally led the interdisciplinary team meeting and agree with comments, barriers and goals indicated. Team meeting was held in the patient's room with the patient and the following family members present: Two daughters Mr. Rubi has excessive secretions which are difficult to manage. He has been taught how to suction. He is tolerating his continuous tube feedings with Jevity 1.2. No evidence of emesis etc. His vital signs have been stable. He has been excessively sleepy and the Remeron has been reduced to 7.5 mg. - Dietary He is tolerating his tube feedings adequately. He remains on Jevity 1.2 continuously. - Speech Therapy He is working diligently with speech therapy. However has difficulty maintaining appropriate attention at times to participate with therapy. His tone is flaccid. He has been taught suctioning techniques. Unable to safely swallow or handle his own secretions. He is improving in his Medication ability. He is using an alphabet board in today was able to state "good morning. " He is making progress with speech therapy. - Physical Therapy Bed, Chair, Wheelchair Transfer Assist: Total Assistance Ambulation Ability: Total Assistance Ambulation Distance: 10 Wheelchair Propulsion Ability: Maximal Assistance Wheelchair Propulsion Distance: 10 Stair Climbing Ability: Patient Unsafe/Unable Car Transfer Ability: Patient Unsafe/Unable Comments: Has limited progression with ambulation because of poor right foot clearance. Working on reciprocal activities. Able to ambulate a few feet with maximum assistance. - Occupational Therapy Eating Ability: Patient Unsafe/Unable Grooming Ability: Minimal Assistance Bathing Ability: Maximal Assistance, 1 Person Assist Upper Body Dressing Ability: Moderate Assistance Lower Body Dressing Ability: Total Assistance Tub Transfer Assist: Patient Unsafe/Unable Toileting Assist: Total Assistance Toilet Transfer Assist: Moderate Assistance Comments: He is using assistive devices. Working on upper and lower body dressings and other ADLs. Making progress and recommend continuing. - Goals Physical Therapy Goals: 08/22/17 Goals. 1. Patient will be able to walk with therapist 20 feet. 2. Pt will be able to perform 10 repetitions of 5 different exercises with right leg. 3. Pt will be able to stand from bed and sit in recliner with minimal assistance. Occupational Therapy Goals: OT goals 08/22/17: 1.) Upper body dressing with set- up assistance. 2.) Lower body dressing with minimal assistance. 3.) Toileting with moderate assistance. Speech Therapy Goals: STG: Pt will convey basic wants/needs to caregivers by spelling or retrieving messages on device independently with 80% accuracy. Pt will convey his wants and needs verbally or non-verbally utilizing a device or verbal communication independently. Pt will follow complex 3-step commands with 80% accuracy requiring mild verbal cues. Pt will answer yes/no and wh- questions from a short paragraph with 80% accuracy requiring mild verbal cues. Dysphagia: Pt will complete exercises to improve stability of oral structures with minimal cues with 80% accuracy. Pt will complete exercises to improve mobility of oral structures with minimal cues with 80% accuracy. Pt will complete exercises to improve strength and endurance of oral structures with minimal cues with 80% accuracy. -Pt will tolerate therapeutic feedings provided by ST and RN. -Pt will participate in updating of swallow ability by completing an MBSS and participating in therapy. - Barriers to Discharge Barriers to Attaining Goals: Weakness (progressive resistive exercises are offered.), Balance (balance and proprioceptive training is underway) - Care Plan Anticipated Length of Stay (days): 14 Anticipated Length of Stay: Reassess in one week Anticipated DC Destination: Home Health Service, Other I have led this team conference and agree with the plan. Interventions/Goals: The patient and his family would like for him to return home. That is our goal as well. However, it remains to be seen if he can be managed in that independent level of care at this time. We will reassess him in another week and make further recommendations. We did mention the possibility of bridge care in a nursing facility if he is not quite ready to go home. Anticipate working with him a couple of weeks.
--- NOTE | 2017-08-22 14:50 | Progress Note ---
- Date 08/22/17 Subjective: Agustin was working with speech therapy. He was holding the Yankauer suction tip near his mouth. Family was at bedside; report that his somnolence has improved. He denied any pain, shortness of breath, or pain in his abdomen. He's been tolerating TF well. Reportedly making progress with therapy. Objective Vital signs: Temperature 98.7 F 08/22/17 08:00 Pulse Rate 75 08/22/17 08:00 Respiratory Rate 16 08/22/17 08:00 Blood Pressure 157/80 H 08/22/17 08:00 Pulse Oximetry 91 08/22/17 08:00 Height/Weight/BMI: Height 1.75 m Weight 68.7 kg Body Mass Index 22.4 - Constitutional Present: no acute distress, well nourished, well developed, thin - Routine HEENT Exam Head: Present: normocephalic Eye: Absent: conjunctival icterus, scleral injection - Routine Respiratory Exam Present: CTA bilaterally - Routine Cardiovascular Exam Present: RRR, S1, S2 - Routine Abdominal Exam Present: soft, normoactive bowel sounds, non distended, non tender - Routine Extremities Exam Present: no edema - Routine Skin Exam Present: intact, dry, warm - Routine Neurological Exam Present: alert. Absent: normal speech - Routine Psychiatric Exam Present: cooperative Results - Labs CBC & Chem 7: 08/20/17 04:52 08/21/17 04:32 Assessment and Plan (1) Cerebral infarction Current visit: No Status: Acute Assessment and Plan: Impression: Acute CVA- 08/11/17 (Admitted at [facility], transfer to [facility] 08/16/17) Dysphagia Aphasia Hx of multiple CVA HTN Coronary artery disease Depression Hx Gout Medication non-compliance S/P PEG tube placement 08/17/17 Hypokalemia - resolved Plan: 08/22/2017 Potassium improved to 3.8. Repeat BMP, mg, phos in am d/t tube feeds. Somnolence is improving. BP improved; resume Cardura. Continue therapy per attending. DVT Prophylaxis: Lovenox Resuscitation Status: Full Code - Physician Narrative Narrative: Date: 08/22/17 Time: 1446 Hospital Course Summary Disclaimer: The visit summary below is not to be considered part of the above Progress Note. Hospital Course: Impression: Acute CVA- 08/11/17 (Admitted at [facility], transfer to [facility] 08/16/17) Dysphagia Aphasia Hx of multiple CVA HTN Coronary artery disease Depression Hx Gout Medication non-compliance S/P PEG tube placement 08/17/17 Plan: 08/18/2017-Med Mgmt Consult: Agree with IRU admission. PT/OT/ST. NPO-TF per PEG tube. BP running high, but pt. got meds late today- avoid excessive lowering. Watch BP for now. May need to increase Coreg if BP remains elevated. Will order Q 4 hour vitals. Patient was not consistently taking ASA/Plavix, so will continue those for now per neurology recommendations. Continue supportive medications. He appears quite depressed. Will add Remeron, low dose, to Cymbalta. We may need psychiatry assessment if persists. Suspect this could be a large factor of his poor medication compliance. PEG tube is doing well-start TF today and monitor for any GI intolerance. HX of esophageal stricture- continue PPI for GI protection. LMWH for DVT px. Thank you for the consult- we will follow this patient with you. Plan: 08/19/2017 Seen acutely due to altered mental status. Somnolent, but arousable. Could be multiple factors in play. I suspect he is quite fatigued from extensive therapy, as well as family visitors. I have asked that therapy hold just for this morning only to allow him to rest. Nursing will help limit visitors to allow patient rest during the day. His blood pressure did significantly decline with medication changes made this morning. Hold Cardura. Repeat vitals in 1 hour. Need to rule out developing infection, pulmonary would be the most likely source as patient is at high risk for aspiration. He was started on tube feeding yesterday, and has difficulty managing oral secretions. Assessment CBC, chest x-ray now. Was started on low-dose Remeron last night to help with significant depression. This may also be sedating for him. We'll place order to hold this medication if patient is sedated. Again, unclear factor of moderately decreased mental status. If no clear source , and mental status does not improve, we could consider repeating CT of the head. He does have recent history of multiple infarcts, however, this was felt to be due to poor medication compliance with anticoagulants. His potassium is low, I ordered replacement this morning. Repeat labs in the morning. I have instructed nursing to call us if his status declined to he does not significantly improve. 08/22/2017 Potassium improved to 3.8. Repeat BMP, mg, phos in am d/t tube feeds. Somnolence is improving. BP improved; resume Cardura. Continue therapy per attending.
--- NOTE | 2017-08-22 19:29 | Progress Note ---
DATE 08/22/2017 HISTORY OF PRESENT ILLNESS The patient is in his bed in the inpatient rehabilitation unit at this time. The patient has been receiving full- strength tube feedings of Jevity 1.2 at a rate of 70 mL/hr through the percutaneous endoscopic gastrostomy tube. The patient has been tolerating this well. Medication has also been administered through the percutaneous endoscopic gastrostomy tube. PHYSICAL EXAMINATION ABDOMEN: Dressings were removed at the percutaneous endoscopic gastrostomy tube site. The percutaneous endoscopic gastrostomy tube site was inspected. The percutaneous endoscopic gastrostomy tube site does have a satisfactory appearance at this time. IMPRESSION 1. Three previous strokes in 2012, 2014 and 2016. 2. Acute cerebrovascular accident on 08/11/2017. 3. Oropharyngeal dysphagia thought to be associated with the acute cerebrovascular accident on 08/11/2017. 4. Status post esophagogastroduodenoscopy with directed placement of percutaneous endoscopic gastrostomy tube (percutaneous endoscopic gastrostomy) on 08/16/2017. TREATMENT I did change dressings at the percutaneous endoscopic gastrostomy tube site today. PLAN 1. Continue tube feedings with Jevity 1.2 through the percutaneous endoscopic gastrostomy tube. The tube feedings will eventually be converted from continuous infusion to bolus feedings. 2. Continue medication administration through the percutaneous endoscopic gastrostomy tube. 3. I will continue to check the percutaneous endoscopic gastrostomy tube site at the abdomen and change dressings while the patient is in the hospital. KEZIAD
[2017-08-22] MEDS: ATORVASTATIN 40 MG TABLET PEG SCH (20:53)
[2017-08-22] MEDS: DONEPEZIL 10 MG TABLET PEG SCH (20:53)
[2017-08-22] MEDS: ENOXAPARIN 40 MG/0.4 ML INJECTION SQ SCH (20:53)
[2017-08-22] MEDS: MIRTAZAPINE 15 MG SOLU-TAB PEG SCH (20:54)
[2017-08-22] MEDS: DOXAZOSIN 1 MG TABLET PEG SCH (21:17)
[2017-08-23] MEDS: LISINOPRIL 20 MG TABLET PEG SCH ×2 (10:11→21:06)
[2017-08-23] MEDS: FAMOTIDINE 20 MG TABLET PEG SCH ×2 (10:11→21:46)
[2017-08-23] MEDS: POTASSIUM CHLORIDE 20 MEQ/15 ML ORAL LIQUID PEG SCH (10:11)
[2017-08-23] MEDS: AMLODIPINE 5 MG TABLET PEG SCH (10:12)
[2017-08-23] MEDS: CLOPIDOGREL 75 MG TABLET PEG SCH (10:12)
[2017-08-23] MEDS: ASPIRIN 81 MG CHEWABLE TABLET PO SCH (10:12)
[2017-08-23] MEDS: COLCHICINE 0.6 MG TABLET PEG SCH (10:12)
[2017-08-23] MEDS: CARVEDILOL 6.25 MG TABLET PEG SCH (10:12)
[2017-08-23] MEDS: ALLOPURINOL 300 MG TABLET PEG SCH (10:12)
[2017-08-23] MEDS: DULOXETINE 60 MG CAPSULE PO SCH (10:12)
[2017-08-23] MEDS: DOXAZOSIN 1 MG TABLET PEG SCH ×2 (10:16→21:48)
--- NOTE | 2017-08-23 14:07 | XRay Report ---
Indication: follow up from 08/19 CXR PROCEDURE: XR chest 1V: Encounter: Initial Comparison: August 19, 2017 Findings: Improving aeration of the right lower lobe. No new or worsening airspace disease. No pleural effusion or pneumothorax. Heart size and mediastinal contours are stable. Pulmonary vascularity is unchanged. Impression: Improving aeration of the right lower lobe. No focal pneumonia currently. .
[2017-08-23] MEDS: ATORVASTATIN 40 MG TABLET PEG SCH (21:01)
[2017-08-23] MEDS: MIRTAZAPINE 15 MG SOLU-TAB PEG SCH (21:06)
[2017-08-23] MEDS: ENOXAPARIN 40 MG/0.4 ML INJECTION SQ SCH (21:49)
[2017-08-23] MEDS: DONEPEZIL 10 MG TABLET PEG SCH (21:49)
[2017-08-24] MEDS: FAMOTIDINE 20 MG TABLET PEG SCH ×2 (10:40→21:24)
[2017-08-24] MEDS: DULOXETINE 60 MG CAPSULE PO SCH (10:40)
[2017-08-24] MEDS: COLCHICINE 0.6 MG TABLET PEG SCH (10:41)
[2017-08-24] MEDS: LISINOPRIL 20 MG TABLET PEG SCH ×2 (10:41→21:24)
[2017-08-24] MEDS: ASPIRIN 81 MG CHEWABLE TABLET PO SCH (10:41)
[2017-08-24] MEDS: CLOPIDOGREL 75 MG TABLET PEG SCH (10:43)
[2017-08-24] MEDS: AMLODIPINE 5 MG TABLET PEG SCH (10:43)
[2017-08-24] MEDS: CARVEDILOL 6.25 MG TABLET PEG SCH (10:43)
[2017-08-24] MEDS: DOXAZOSIN 1 MG TABLET PEG SCH ×2 (10:46→21:24)
--- NOTE | 2017-08-24 11:18 | IRU Progress Note ---
- Subjective/Serverity of Illness Date: 08/24/17 Mr. Smalls was evaluated in the inpatient rehabilitation unit in the gymnasium area with therapist present. According to the therapists, he requires a lot of encouragement. He seems to be discouraged. He seems to be depressed. He continues to struggle with secretions and lack of ability to swallow safely. He continues to work with speech therapy and OT and PT. He requires moderate assistance for slide board transfers when he is going downhill but maximum assistance when he is going up well. From a medical standpoint, a chest radiograph was obtained and shows improved aeration. No focal pneumonia is noted. Continues to have a cough off and on. He was seen by Dr. June with regard to the PEG tube. Site appears to be unremarkable. Patient is tolerating Jevity continuous infusion without difficulty and without evidence of aspiration/nausea or vomiting. Exam Vital Signs: Temperature 97.5 F 08/24/17 07:45 Pulse Rate 86 08/24/17 07:45 Respiratory Rate 18 08/24/17 07:45 Blood Pressure 125/79 08/24/17 07:45 Pulse Oximetry 90 08/24/17 07:45 Height/Weight/BMI: Height 1.75 m Weight 68.7 kg Body Mass Index 22.4 - Constitutional Present: no acute distress, well nourished, well developed, thin Comments: Seems apathetic at times. Requires much motivation. - Routine HEENT Exam Eye: Present: EOMI ENT: Present: mucous membranes moist, oropharynx clear - Routine Neck Exam Present: supple - Routine Respiratory Exam Present: decreased breath sounds, CTA bilaterally. Absent: wheezes - Routine Cardiovascular Exam Present: RRR, S1, S2, murmur (heard a murmur today, grade 2/6 LSB) - Routine Abdominal Exam Present: soft, normoactive bowel sounds, non distended. Absent: tenderness - Routine Extremities Exam Present: no edema - Routine Skin Exam Present: dry, warm - Routine Neurological Exam Present: CN II-XII intact. Absent: alert (appears depressed, eyes down, "apathetic"), oriented X3 - Routine Psychiatric Exam Present: depressed Results IRU - Labs Labs: Have reviewed other providers notes as well as chest radiograph report. IRU A/P (1) Cerebral infarction Qualifiers: Cerebral infarction mechanism: thrombosis Precerebral and cerebral artery: middle cerebral artery Laterality of affected vessel: left Qualified Code(s) : I63.312 - Cerebral infarction due to thrombosis of left middle cerebral artery Current visit: No Status: Acute Continues to struggle with multiple deficits from his CVA. In particular the swallowing deficit is a major issue along with his A. fib easier. Progress is slow. He requires a lot of motivation. (2) Dysphagia Qualifiers: Dysphagia type: oropharyngeal phase Qualified Code(s): R13.12 - Dysphagia, oropharyngeal phase Current visit: No Status: Acute (3) Benign essential hypertension Current visit: No Status: Chronic Blood pressures are reviewed and are adequately controlled. (4) Memory loss due to medical condition Current visit: No Status: Chronic DVT Prophylaxis: Lovenox Resuscitation Status: Full Code - Course Hospital Course: Akash Mei MD: 08/22/17 11:09 Slow progress with therapies. Making progress with speech therapy. Improving with regard to transfers with moderate assistance required. 08/24/17 11:19 Slow progress. Requires much motivation for participation. Improving with sliding board transfers. - Interventions to Obtain Goals PT Treatment Plan: Balance/Proprioception, Functional Activities, Gait Training , Patient/Family Education, Therapeutic Exercise OT Treatment Plan: ADL (Basic Care), Balance Training, IADL, Pt./Family Education, Ther. Exercise for ADL Goals Progress/Modifications: Medically, the patient is stable although somewhat complex with regard to his tube feedings, management of secretions etc. He is cooperative with ST, OT and PT although does not display significant motivation. He appears to be depressed. He requires much encouragement for full participation. It is believed that he can perform functional activities better than he is at the present time, possibly secondary to reduced motivation/depression. This is been discussed with the patient in detail. We will continue to encourage him to participate in order to get back home if at all possible.
--- NOTE | 2017-08-24 17:40 | Progress Note ---
DATE 08/24/2017 HISTORY OF PRESENT ILLNESS The patient is in his bed in the inpatient rehabilitation unit at this time. The tube feedings of Jevity 1.2 were switched from continuous infusion to bolus feedings yesterday. The nurse for the patient reports the patient has been tolerating his bolus feedings well so far. Medication is also being administered through the percutaneous endoscopic gastrostomy tube. PHYSICAL EXAMINATION VITAL SIGNS: Temperature is 98.5 degrees Fahrenheit oral. Pulse is 76. Respiratory rate is 18. Blood pressure is 103/76. Oxygen saturation is 97% on room air. ABDOMEN: Dressings were removed at the percutaneous endoscopic gastrostomy tube site. The percutaneous endoscopic gastrostomy tube site was inspected. The percutaneous endoscopic gastrostomy tube site does appear to have a satisfactory appearance at this time. IMPRESSION 1. Three previous strokes in 2012, 2014 and 2016. 2. Acute cerebrovascular accident on 08/11/2017. 3. Oral pharyngeal dysphagia thought to be associated with the acute cerebrovascular accident on 08/11/2017. 4. Status post esophagogastroduodenoscopy with directed placement of percutaneous endoscopic gastrostomy tube (percutaneous endoscopic gastrostomy) on 08/16/2017. TREATMENT I did change dressings at the percutaneous endoscopic gastrostomy tube site today. PLAN 1. Continue bolus feedings of Jevity 1.2 through the percutaneous endoscopic gastrostomy tube. 2. Continue medication administration through the percutaneous endoscopic gastrostomy tube. 3. I will continue to check the percutaneous endoscopic gastrostomy tube site at the abdomen and change dressings while the patient is in the hospital. RUDY
[2017-08-24] MEDS: DONEPEZIL 10 MG TABLET PEG SCH (21:23)
[2017-08-24] MEDS: ATORVASTATIN 40 MG TABLET PEG SCH (21:23)
[2017-08-24] MEDS: ENOXAPARIN 40 MG/0.4 ML INJECTION SQ SCH (21:24)
[2017-08-24] MEDS: MIRTAZAPINE 15 MG SOLU-TAB PEG SCH (21:24)
[2017-08-25] MEDS: ASPIRIN 81 MG CHEWABLE TABLET PO SCH (09:48)
[2017-08-25] MEDS: DULOXETINE 60 MG CAPSULE PO SCH (09:48)
[2017-08-25] MEDS: CLOPIDOGREL 75 MG TABLET PEG SCH (09:49)
[2017-08-25] MEDS: CARVEDILOL 6.25 MG TABLET PEG SCH (09:49)
[2017-08-25] MEDS: DOXAZOSIN 1 MG TABLET PEG SCH ×2 (09:49→22:16)
[2017-08-25] MEDS: AMLODIPINE 5 MG TABLET PEG SCH (09:49)
[2017-08-25] MEDS: LISINOPRIL 20 MG TABLET PEG SCH ×2 (09:49→22:16)
[2017-08-25] MEDS: FAMOTIDINE 20 MG TABLET PEG SCH ×2 (09:49→22:15)
[2017-08-25] MEDS: COLCHICINE 0.6 MG TABLET PEG SCH (09:49)
--- NOTE | 2017-08-25 10:55 | IRU Progress Note ---
- Subjective/Serverity of Illness Date: 08/25/17 Agustin was reassessed in his room on inpatient rehabilitation. He continues to be excessively sleepy and has difficulty participating in therapy. It is noted that he is on duloxetine as well as mirtazapine. I discussed this with the hospitalist service today and we will plan to discontinue the mirtazapine at present. I discussed this with the patient as well as to whether he was interested in continuing therapy or not. He says that he is (by shaking his head yes). However he is quite subdued and appears to be sleepy. Obviously it is difficult to determine if this represents depression, apathy, withdrawal or sleepiness. His tube feedings have been changed to bolus feedings and he seems to be tolerating these adequately. His blood pressures appear to be adequately controlled. Exam Vital Signs: Temperature 98.5 F 08/25/17 08:00 Pulse Rate 73 08/25/17 04:00 Respiratory Rate 20 08/25/17 08:00 Blood Pressure 120/80 08/25/17 08:00 Pulse Oximetry 95 08/25/17 08:00 Height/Weight/BMI: Height 1.75 m Weight 68.9 kg Body Mass Index 22.4 - Constitutional Present: no acute distress, well nourished, well developed, somnolent - Routine HEENT Exam Eye: Present: EOMI ENT: Present: mucous membranes moist, oropharynx clear - Routine Neck Exam Present: supple - Routine Respiratory Exam Present: decreased breath sounds, CTA bilaterally. Absent: wheezes - Routine Cardiovascular Exam Present: RRR, S1, S2. Absent: murmur - Routine Abdominal Exam Present: soft, normoactive bowel sounds, non distended. Absent: tenderness - Routine Extremities Exam Present: no edema - Routine Skin Exam Present: dry, warm - Routine Neurological Exam Absent: alert, oriented X3, CN II-XII intact, normal speech - Routine Psychiatric Exam Present: depressed Comments: sleepy Results IRU - Labs Labs: Have reviewed other providers notes, labs etc. IRU A/P (1) Cerebral infarction Qualifiers: Cerebral infarction mechanism: thrombosis Precerebral and cerebral artery: middle cerebral artery Laterality of affected vessel: left Qualified Code(s) : I63.312 - Cerebral infarction due to thrombosis of left middle cerebral artery Current visit: No Status: Acute Neurologically he continues to be unchanged. His participation in therapy is variable. (2) Dysphagia Qualifiers: Dysphagia type: oropharyngeal phase Qualified Code(s): R13.12 - Dysphagia, oropharyngeal phase Current visit: No Status: Acute He continues on tube feedings which are now bolus. (3) Benign essential hypertension Current visit: No Status: Chronic Blood pressures are well controlled. (4) Memory loss due to medical condition Current visit: No Status: Chronic DVT Prophylaxis: Lovenox Resuscitation Status: Full Code - Course Hospital Course: Akash Mei MD: 08/22/17 11:09 Slow progress with therapies. Making progress with speech therapy. Improving with regard to transfers with moderate assistance required. 08/24/17 11:19 Slow progress. Requires much motivation for participation. Improving with sliding board transfers. 08/25/17 10:56 Displays a degree of apathy versus sleepiness. We will discontinue mirtazapine today and continue duloxetine. - Interventions to Obtain Goals PT Treatment Plan: Balance/Proprioception, Functional Activities, Gait Training , Patient/Family Education, Therapeutic Exercise OT Treatment Plan: ADL (Basic Care), Balance Training, IADL, Pt./Family Education, Ther. Exercise for ADL Goals Progress/Modifications: Although the patient remains medically stable and without new neurologic findings, he remains apathetic. He is disinterested much of the time according to therapy. However he has been asked by both myself and therapy as to whether he is interested in continuing and getting stronger to go home. He shakes his head yes that he is interested in doing this. It is possible that he is a bit oversedated with regard to the mirtazapine even though it is a low dose. After discussion with the hospitalist service will discontinue mirtazapine but continue duloxetine at the present time and encourage him to participate in therapy as much as feasible.
--- NOTE | 2017-08-25 15:27 | Progress Note ---
- Date 08/25/17 Subjective: Agustin was watching tv in his room. He was nonverbal, but shook his head "no" when I asked if he had any pain. He did not make a lot of eye contact. He's tolerating tube feeds. Per Dr. Romo, he's having difficulty participating in therapy b/c of sleepiness Objective Vital signs: Temperature 98.3 F 08/25/17 15:04 Pulse Rate 70 08/25/17 15:04 Respiratory Rate 16 08/25/17 15:04 Blood Pressure 104/74 08/25/17 15:04 Pulse Oximetry 94 08/25/17 15:04 Height/Weight/BMI: Height 1.75 m Weight 68.9 kg Body Mass Index 22.4 - Constitutional Present: no acute distress, well nourished, well developed - Routine HEENT Exam Head: Present: normocephalic Eye: Absent: conjunctival icterus, scleral injection - Routine Respiratory Exam Present: CTA bilaterally - Routine Cardiovascular Exam Present: RRR, S1, S2 - Routine Abdominal Exam Present: soft, normoactive bowel sounds, non distended, non tender Comments: peg tube intact; dressings on abd - Routine Extremities Exam Present: no edema - Routine Skin Exam Present: dry, warm - Routine Neurological Exam Present: alert - Routine Psychiatric Exam Present: unable to assess Results - Labs CBC & Chem 7: 08/20/17 04:52 08/23/17 05:02 Assessment and Plan (1) Cerebral infarction Current visit: No Status: Acute Assessment and Plan: Impression: Acute CVA- 08/11/17 (Admitted at [place], [place] [facility] [place] Dysphagia Aphasia Hx of multiple CVA HTN Coronary artery disease Depression Hx Gout Medication non-compliance S/P PEG tube placement 08/17/17 Hypokalemia - resolved Plan: 08/25/2017 electrolytes stable as of 08/23, though phos increasing. repeat labs in am. tolerating tube feeds. ongoing somnolence - mirtazapine dc'd per attending. Continue therapy - participation is variable. - Physician Narrative Narrative: Date: 08/25/17 Time: 1523 Hospital Course Summary Disclaimer: The visit summary below is not to be considered part of the above Progress Note. Hospital Course: Impression: Acute CVA- 08/11/17 (Admitted at [place], [place] [facility] [place] Dysphagia Aphasia Hx of multiple CVA HTN Coronary artery disease Depression Hx Gout Medication non-compliance S/P PEG tube placement 08/17/17 Plan: 08/18/2017-Med Mgmt Consult: Agree with IRU admission. PT/OT/ST. NPO-TF per PEG tube. BP running high, but pt. got meds late today- avoid excessive lowering. Watch BP for now. May need to increase Coreg if BP remains elevated. Will order Q 4 hour vitals. Patient was not consistently taking ASA/Plavix, so will continue those for now per neurology recommendations. Continue supportive medications. He appears quite depressed. Will add Remeron, low dose, to Cymbalta. We may need psychiatry assessment if persists. Suspect this could be a large factor of his poor medication compliance. PEG tube is doing well-start TF today and monitor for any GI intolerance. HX of esophageal stricture- continue PPI for GI protection. LMWH for DVT px. Thank you for the consult- we will follow this patient with you. Plan: 08/19/2017 Seen acutely due to altered mental status. Somnolent, but arousable. Could be multiple factors in play. I suspect he is quite fatigued from extensive therapy, as well as family visitors. I have asked that therapy hold just for this morning only to allow him to rest. Nursing will help limit visitors to allow patient rest during the day. His blood pressure did significantly decline with medication changes made this morning. Hold Cardura. Repeat vitals in 1 hour. Need to rule out developing infection, pulmonary would be the most likely source as patient is at high risk for aspiration. He was started on tube feeding yesterday, and has difficulty managing oral secretions. Assessment CBC, chest x-ray now. Was started on low-dose Remeron last night to help with significant depression. This may also be sedating for him. We'll place order to hold this medication if patient is sedated. Again, unclear factor of moderately decreased mental status. If no clear source , and mental status does not improve, we could consider repeating CT of the head. He does have recent history of multiple infarcts, however, this was felt to be due to poor medication compliance with anticoagulants. His potassium is low, I ordered replacement this morning. Repeat labs in the morning. I have instructed nursing to call us if his status declined to he does not significantly improve. 08/22/2017 Potassium improved to 3.8. Repeat BMP, mg, phos in am d/t tube feeds. Somnolence is improving. BP improved; resume Cardura. Continue therapy per attending. 08/25/2017 electrolytes stable as of 08/23, though phos increasing. repeat labs in am. tolerating tube feeds. ongoing somnolence - mirtazapine dc'd per attending.
[2017-08-25] MEDS: ENOXAPARIN 40 MG/0.4 ML INJECTION SQ SCH (22:15)
[2017-08-25] MEDS: ATORVASTATIN 40 MG TABLET PEG SCH (22:15)
[2017-08-25] MEDS: DONEPEZIL 10 MG TABLET PEG SCH (22:16)
[2017-08-26] MEDS: FAMOTIDINE 20 MG TABLET PEG SCH ×2 (09:37→23:17)
[2017-08-26] MEDS: CLOPIDOGREL 75 MG TABLET PEG SCH (09:37)
[2017-08-26] MEDS: DULOXETINE 60 MG CAPSULE PO SCH (09:37)
[2017-08-26] MEDS: LISINOPRIL 20 MG TABLET PEG SCH (09:37)
[2017-08-26] MEDS: DOXAZOSIN 1 MG TABLET PEG SCH ×2 (09:37→23:17)
[2017-08-26] MEDS: COLCHICINE 0.6 MG TABLET PEG SCH (09:37)
[2017-08-26] MEDS: CARVEDILOL 6.25 MG TABLET PEG SCH (09:37)
[2017-08-26] MEDS: AMLODIPINE 5 MG TABLET PEG SCH (09:37)
[2017-08-26] MEDS: ASPIRIN 81 MG CHEWABLE TABLET PO SCH (09:37)
[2017-08-26] MEDS: ATORVASTATIN 40 MG TABLET PEG SCH (23:17)
[2017-08-26] MEDS: ENOXAPARIN 40 MG/0.4 ML INJECTION SQ SCH (23:17)
[2017-08-26] MEDS: DONEPEZIL 10 MG TABLET PEG SCH (23:18)
[2017-08-27] MEDS: ASPIRIN 81 MG CHEWABLE TABLET PO SCH (09:43)
[2017-08-27] MEDS: DOXAZOSIN 1 MG TABLET PEG SCH ×2 (09:43→21:21)
[2017-08-27] MEDS: CLOPIDOGREL 75 MG TABLET PEG SCH (09:43)
[2017-08-27] MEDS: DULOXETINE 60 MG CAPSULE PO SCH (09:43)
[2017-08-27] MEDS: COLCHICINE 0.6 MG TABLET PEG SCH (09:43)
[2017-08-27] MEDS: CARVEDILOL 6.25 MG TABLET PEG SCH (09:43)
[2017-08-27] MEDS: AMLODIPINE 5 MG TABLET PEG SCH (09:44)
[2017-08-27] MEDS: FAMOTIDINE 20 MG TABLET PEG SCH ×2 (09:48→21:20)
--- NOTE | 2017-08-27 13:13 | Progress Note ---
Progress Note: Reviewed labs: potassium WNL, phos and Mg elevated. Give extra 250cc's free water in feeding tube x 1. Repeat labs in am.
[2017-08-27] MEDS: DONEPEZIL 10 MG TABLET PEG SCH (21:20)
[2017-08-27] MEDS: ATORVASTATIN 40 MG TABLET PEG SCH (21:22)
[2017-08-27] MEDS: ENOXAPARIN 40 MG/0.4 ML INJECTION SQ SCH (21:22)
[2017-08-28] MEDS: AMLODIPINE 5 MG TABLET PEG SCH (10:08)
[2017-08-28] MEDS: CLOPIDOGREL 75 MG TABLET PEG SCH (10:08)
[2017-08-28] MEDS: CARVEDILOL 6.25 MG TABLET PEG SCH (10:08)
[2017-08-28] MEDS: COLCHICINE 0.6 MG TABLET PEG SCH (10:09)
[2017-08-28] MEDS: ASPIRIN 81 MG CHEWABLE TABLET PO SCH (10:09)
[2017-08-28] MEDS: DULOXETINE 60 MG CAPSULE PO SCH (10:09)
[2017-08-28] MEDS: FAMOTIDINE 20 MG TABLET PEG SCH ×2 (10:09→20:33)
[2017-08-28] MEDS: DOXAZOSIN 1 MG TABLET PEG SCH ×2 (10:09→20:33)
--- NOTE | 2017-08-28 10:26 | Progress Note ---
DATE 08/27/2017 HISTORY OF PRESENT ILLNESS This patient is in a bed in Inpatient Rehabilitation Unit at this time. The patient has been receiving full strength tube feedings of Jevity 1.2. The patient has been receiving bolus feedings. The patient initially appeared to be tolerating this well. The patient did experience some coughing and choking after a bolus tube feeding yesterday. This was after some free water was infused following the bolus tube feeding. This did raise concern that the patient might have experienced a little aspiration at that time. Tube feedings have been held since then. The nurses are thinking about restarting the bolus feedings today. There are no gastric residual amounts available for review. PHYSICAL EXAMINATION ABDOMEN: Dressings were removed at the percutaneous endoscopic gastrostomy tube site today. The percutaneous endoscopic gastrostomy tube site was inspected. The percutaneous endoscopic gastric tube site continues to have a satisfactory appearance at this time. IMPRESSION 1. Three previous strokes in 2012, 2014 and 2016. 2. Acute cerebrovascular accident on 08/11/2017. 3. Oropharyngeal dysphagia thought to be associated with the acute cerebrovascular accident on 08/11/2017. 4. Status post esophagogastroduodenoscopy with directed placement of percutaneous endoscopic gastrostomy tube (percutaneous endoscopic gastrostomy) on 08/16/2017. TREATMENT I did change dressings at the percutaneous endoscopic gastrostomy tube site today. PLAN 1. Nurses plan to resume bolus feedings of Jevity 1.2 through the percutaneous endoscopic gastrostomy tube site today. We may want to monitor gastric residual amounts. 2. Continue medication administration through the percutaneous endoscopic gastrostomy tube. 3. I will continue to check the percutaneous endoscopic gastrostomy tube site at the abdomen and change dressings while the patient is in the hospital. RUDY
--- NOTE | 2017-08-28 11:02 | IRU Progress Note ---
- Subjective/Serverity of Illness Date: 08/28/17 Mr. Rubi was interviewed and examined in his room with nurse present. He is tolerating his tube feedings adequately. He is not able to speak. He barely nonsustained head and appears to be sleepy. Nevertheless, he has been more engaged with therapy according to their report. The patient is followed by the hospitalist service as well. Electrolytes are noted. Potassium is a bit up. Additional free water is being given via tube feedings. From an occupational therapy standpoint he has been more engaged with therapy. He is doing better than anticipated. With physical therapy, transfers are now with total assist and previously was moderate assist. Today he walked with the parallel bars with total assistance of 2 or more people. Seemed to be able to tolerate that reasonably well. Speech therapy indicates however that he is not cooperating with her today. He will stick out his tongue. He will not engage in interaction. Exam Vital Signs: Temperature 97.6 F 08/28/17 08:00 Pulse Rate 74 08/28/17 08:00 Respiratory Rate 14 08/28/17 08:00 Blood Pressure 128/83 08/28/17 08:00 Pulse Oximetry 91 08/28/17 08:00 Height/Weight/BMI: Height 1.75 m Weight 68.9 kg Body Mass Index 22.4 - Constitutional Present: no acute distress, well nourished, well developed, thin, somnolent Comments: Seems to be disengaged/apathetic at the present time. Not certain if he is worn out from the treatment versus being discouraged/depressed. - Routine HEENT Exam Eye: Present: EOMI ENT: Present: mucous membranes moist, dentition normal - Routine Neck Exam Present: supple - Routine Respiratory Exam Present: CTA bilaterally. Absent: wheezes - Routine Cardiovascular Exam Present: RRR, S1, S2. Absent: murmur - Routine Abdominal Exam Present: soft, normoactive bowel sounds, non distended. Absent: tenderness - Routine Extremities Exam Present: no edema, normal capillary refill - Routine Skin Exam Present: dry, warm - Routine Neurological Exam Present: motor deficit. Absent: alert, oriented X3, CN II-XII intact - Routine Psychiatric Exam Present: depressed IRU A/P (1) Cerebral infarction Qualifiers: Cerebral infarction mechanism: thrombosis Precerebral and cerebral artery: middle cerebral artery Laterality of affected vessel: left Qualified Code(s) : I63.312 - Cerebral infarction due to thrombosis of left middle cerebral artery Current visit: No Status: Acute There are no new neurologic findings noted. However he has become somewhat disengaged particularly with speech therapy. On the other hand, he was engaged with physical therapy and was able to walk in the parallel bars with assistance of 2 or more people. (2) Dysphagia Qualifiers: Dysphagia type: oropharyngeal phase Qualified Code(s): R13.12 - Dysphagia, oropharyngeal phase Current visit: No Status: Acute He is tolerating his tube feedings adequately. (3) Benign essential hypertension Current visit: No Status: Chronic (4) Memory loss due to medical condition Current visit: No Status: Chronic DVT Prophylaxis: Lovenox Resuscitation Status: Full Code - Course Hospital Course: Akash Mei MD: 08/22/17 11:09 Slow progress with therapies. Making progress with speech therapy. Improving with regard to transfers with moderate assistance required. 08/24/17 11:19 Slow progress. Requires much motivation for participation. Improving with sliding board transfers. 08/25/17 10:56 Displays a degree of apathy versus sleepiness. We will discontinue mirtazapine today and continue duloxetine. 08/28/17 11:04 Potassium a bit up today. Additional free water being given. His involvement and engagement with therapies is variable. [place] using with speech therapy but more involved with physical therapy at present. - Interventions to Obtain Goals PT Treatment Plan: Balance/Proprioception, Functional Activities, Gait Training , Patient/Family Education, Therapeutic Exercise OT Treatment Plan: ADL (Basic Care), Balance Training, IADL, Pt./Family Education, Ther. Exercise for ADL Goals Progress/Modifications: We have discontinued his Remeron thinking that this would make him more awake and engaged during the daytime. However he has variable response to therapies. Right now he is not engaged with speech therapy. He was able to walk with the parallel bars with total assistance of at least 2 people. Large motor movement seems to be more desired for him at this time. From a medical standpoint he is stable. His blood pressures are controlled. His tube feedings are tolerated adequately. His potassium is a bit up and he is given additional free water and potassium has been discontinued. We will continue working with him but unfortunately if he is not making additional progress we'll need to reassess things.
[2017-08-28] MEDS: ENOXAPARIN 40 MG/0.4 ML INJECTION SQ SCH (20:34)
[2017-08-28] MEDS: DONEPEZIL 10 MG TABLET PEG SCH (20:34)
[2017-08-28] MEDS: ATORVASTATIN 40 MG TABLET PEG SCH (20:34)
[2017-08-29] MEDS: SALINE FLUSH 10ml SYRINGE IV PRN (09:45)
[2017-08-29] MEDS: DOXAZOSIN 1 MG TABLET PEG SCH ×2 (09:46→21:30)
[2017-08-29] MEDS: FAMOTIDINE 20 MG TABLET PEG SCH ×2 (09:46→21:10)
[2017-08-29] MEDS: AMLODIPINE 5 MG TABLET PEG SCH (09:46)
[2017-08-29] MEDS: CLOPIDOGREL 75 MG TABLET PEG SCH (09:46)
[2017-08-29] MEDS: CARVEDILOL 6.25 MG TABLET PEG SCH (09:46)
[2017-08-29] MEDS: COLCHICINE 0.6 MG TABLET PEG SCH (09:46)
[2017-08-29] MEDS: DULOXETINE 60 MG CAPSULE PO SCH (09:46)
[2017-08-29] MEDS: ASPIRIN 81 MG CHEWABLE TABLET PO SCH (09:46)
--- NOTE | 2017-08-29 11:32 | IRU Progress Note ---
- Subjective/Serverity of Illness Date: 08/29/17 Mr. Rubi was interviewed and examined in his room on the inpatient rehabilitation. He will barely nod his head. When I asked him if he was "giving up," He shook his head "no." He did indicate that he is not sleeping very well at night. While he is tolerating the tube feedings from a quantity standpoint, his phosphorus has been up along with his potassium. Discussed with dietitian at length today. We will increase free water to see if this helps. At this time he does not display evidence of renal failure some reluctant to pursue a low phosphorus formula. His lisinopril has been held in view of the hyperkalemia. Exam Vital Signs: Temperature 98.2 F 08/29/17 08:00 Pulse Rate 89 08/29/17 08:00 Respiratory Rate 10 08/29/17 08:00 Blood Pressure 142/92 H 08/29/17 08:00 Pulse Oximetry 91 08/29/17 08:00 Height/Weight/BMI: Height 1.75 m Weight 68.9 kg Body Mass Index 22.4 - Constitutional Present: no acute distress, well nourished, well developed Comments: Patient does not have good eye contact nor does he interact much. He will barely shake his head yes or no. Remains aphasic. - Routine HEENT Exam Head: Present: normocephalic Eye: Present: EOMI ENT: Present: mucous membranes moist, oropharynx clear - Routine Neck Exam Present: supple - Routine Respiratory Exam Present: CTA bilaterally. Absent: wheezes - Routine Cardiovascular Exam Present: RRR, S1, S2. Absent: murmur - Routine Abdominal Exam Present: soft, normoactive bowel sounds, non distended. Absent: tenderness - Routine Extremities Exam Present: no edema, normal capillary refill - Routine Skin Exam Present: dry, warm - Routine Neurological Exam Absent: alert, oriented X3, CN II-XII intact Seems sleepy, apathetic and disengaged. - Routine Psychiatric Exam Present: depressed IRU A/P (1) Cerebral infarction Qualifiers: Cerebral infarction mechanism: thrombosis Precerebral and cerebral artery: middle cerebral artery Laterality of affected vessel: left Qualified Code(s) : I63.312 - Cerebral infarction due to thrombosis of left middle cerebral artery Current visit: No Status: Acute Continues to be poorly interactive. Team meeting today for further multidisciplinary input as to continue working with him. (2) Dysphagia Qualifiers: Dysphagia type: oropharyngeal phase Qualified Code(s): R13.12 - Dysphagia, oropharyngeal phase Current visit: No Status: Acute Remains aphasic as well as unable to safely swallow. Tube feedings are tolerated well. See note below re: change in tube feedings. (3) Benign essential hypertension Current visit: No Status: Chronic (4) Memory loss due to medical condition Current visit: No Status: Chronic DVT Prophylaxis: Lovenox Resuscitation Status: Full Code - Course Hospital Course: Akash Mei MD: 08/22/17 11:09 Slow progress with therapies. Making progress with speech therapy. Improving with regard to transfers with moderate assistance required. 08/24/17 11:19 Slow progress. Requires much motivation for participation. Improving with sliding board transfers. 08/25/17 10:56 Displays a degree of apathy versus sleepiness. We will discontinue mirtazapine today and continue duloxetine. 08/28/17 11:04 Potassium a bit up today. Additional free water being given. His involvement and engagement with therapies is variable. [place] using with speech therapy but more involved with physical therapy at present. 08/29/17 11:44 Seems more apathetic. Additional free water will be given in 2 feedings. - Interventions to Obtain Goals PT Treatment Plan: Balance/Proprioception, Functional Activities, Gait Training , Patient/Family Education, Therapeutic Exercise OT Treatment Plan: ADL (Basic Care), Balance Training, IADL, Pt./Family Education, Ther. Exercise for ADL Goals Progress/Modifications: Discussed with dietitian with regard to the elevated potassium and phosphorus. Does not have renal failure at present. However we will increase free water by 250 mL or so per day.
--- NOTE | 2017-08-29 13:48 | IRU Team Meeting ---
IRU Team Meeting - Nursing Bladder Assistive Devices Utilized:: Absorbent Pad Bladder Management Level of Assist: Total Assistance Bladder Frequency of Accidents: No accidents Bowel Assistive Devices Utilized:: Absorbent Pad Bowel Management Level of Assist: Total Assistance Bowel Frequency of Accidents: No accidents Vital Signs: Vital Signs - 24 hr 08/28/17 15:58 08/28/17 20:00 08/29/17 00:00 Temperature 98.0 F 97.8 F 97.0 F Pulse Rate 79 62 65 Respiratory Rate 12 20 Blood Pressure 120/74 145/87 H 122/79 Pulse Oximetry 88 L 97 90 08/29/17 03:31 08/29/17 08:00 08/29/17 12:00 Temperature 98.2 F 98.6 F Pulse Rate 79 89 84 Respiratory Rate 18 10 16 Blood Pressure 126/80 142/92 H 127/80 Pulse Oximetry 91 91 95 Current Medications: Amlodipine Besylate (Norvasc) 5 mg PEG DAILY [facility] Last Admin: 08/29/17 09:46 Dose: 5 mg Aspirin (Asa) 81 mg PO DAILY [facility] Last Admin: 08/29/17 09:46 Dose: 81 mg Atorvastatin Calcium (Lipitor) 80 mg PEG HS [facility] Last Admin: 08/28/17 20:34 Dose: 80 mg Carvedilol (Coreg) 6.25 mg PEG DAILY [facility] Last Admin: 08/29/17 09:46 Dose: 6.25 mg Clopidogrel Bisulfate (Plavix) 75 mg PEG DAILY [facility] Last Admin: 08/29/17 09:46 Dose: 75 mg Colchicine (Colcrys) 0.6 mg PEG DAILY [facility] Last Admin: 08/29/17 09:46 Dose: 0.6 mg Donepezil HCl (Aricept 10 Mg) 10 mg PEG HS [facility] Last Admin: 08/28/17 20:34 Dose: 10 mg Doxazosin Mesylate (Cardura) 1 mg PEG BID [facility] Last Admin: 08/29/17 09:46 Dose: 1 mg Duloxetine HCl (Cymbalta) 60 mg PO DAILY [facility] Last Admin: 08/29/17 09:46 Dose: 60 mg Enoxaparin Sodium (Lovenox) 40 mg SQ 2100 [facility] Last Admin: 08/28/17 20:34 Dose: 40 mg Famotidine (Pepcid) 20 mg PEG BID [facility] Last Admin: 08/29/17 09:46 Dose: 20 mg Hydralazine HCl (Apresoline) 5 - 10 mg IVP Q4H PRN PRN Reason: Hypertension Last Admin: 08/19/17 04:00 Dose: 5 mg Lisinopril (Prinivil) 20 mg PEG BID [facility] Last Admin: 08/26/17 09:37 Dose: 20 mg Sodium Chloride (Iv Flush) 10 ml IV PRN PRN PRN Reason: Flushing Last Admin: 08/29/17 09:45 Dose: 10 ml Current Medical Issues: recent CVA, aphasia, dysphagia, new PEG tube, hyperkalemia, hyperphosphatemia Comments: I certify that I personally led the interdisciplinary team meeting and agree with comments, barriers and goals indicated. Team meeting was held in the patient's room with the patient and the following family members present: Patient's two daughters Mr. Rubi is alert at times would also sleepy at times. He is tolerating his tube feedings adequately. His potassium and phosphorus has been elevated and in response to this, additional free water will be provided. - Dietary Continue current tube feedings although we will increase free water. - Speech Therapy Patient has not made progress toward dysphagia and goals. He has limited participation for uncertain reasons. He does not use his communication board even though he is capable of doing that. Speech therapy will reduce to 30 minutes 3 times weekly. - Physical Therapy Bed, Chair, Wheelchair Transfer Assist: Moderate Assistance Ambulation Ability: Total Assistance, 2 or More Person Assist Ambulation Distance: 7 Wheelchair Propulsion Ability: Total Assistance Wheelchair Propulsion Distance: 30 Stair Climbing Ability: Patient Unsafe/Unable Car Transfer Ability: Patient Unsafe/Unable Comments: Physical therapy he is inconsistent with progress. At times he does put forth more effort and other times he appears to be more apathetic. He is making small gains regarding functional mobility - Occupational Therapy Eating Ability: Patient Unsafe/Unable Grooming Ability: Minimal Assistance Bathing Ability: Moderate Assistance Upper Body Dressing Ability: Maximal Assistance Lower Body Dressing Ability: Total Assistance Tub Transfer Assist: Patient Unsafe/Unable Toileting Assist: Total Assistance Toilet Transfer Assist: Moderate Assistance Comments: Has variable degrees of alertness. He does demonstrate however inconsistent efforts depending on fatigue and participation level. Slow progress toward OT goals. - Goals Physical Therapy Goals: 08/29/17. 1. Complete a slideboard transfer with contact guard assist. 2. Complete bed mobility with min A. 3. Propel w/ch 50 ft with min A. Occupational Therapy Goals: OT goals 08/22/17, 08/29/17: 1.) Upper body dressing with set-up assistance.- continue (Pt. currently requires maximal assistance). 2.) Lower body dressing with minimal assistance.- continue (Pt. currently requires total assistance). 3.) Toileting with moderate assistance. -continue ( Pt. currently requires total assistance) Speech Therapy Goals: Pt will convey basic wants/needs to caregivers by spelling or retrieving messages on device independently with 80% accuracy. Pt will convey his wants and needs verbally or non-verbally utilizing a device or verbal communication independently. Pt will follow complex 3-step commands with 80% accuracy requiring mild verbal cues. Pt will answer yes/no and wh- questions from a short paragraph with 80% accuracy requiring mild verbal cues. Dysphagia: Pt will complete exercises to improve stability of oral structures with minimal cues with 80% accuracy. Pt will complete exercises to improve mobility of oral structures with minimal cues with 80% accuracy. Pt will complete exercises to improve strength and endurance of oral structures with minimal cues with 80% accuracy. -Pt will tolerate therapeutic feedings provided by ST and RN. -Pt will participate in updating of swallow ability by completing an MBSS and participating in therapy. - Barriers to Discharge Barriers to Attaining Goals: Weakness (to address reduced strength, progressive resistive exercises are offered.), Balance (to address imbalance, additional proprioceptive training is offered.), Other (patient lacks motivation and seems to be apathetic much of the time.) - Care Plan Anticipated Length of Stay (days): 3 Anticipated DC Destination: Halfway/Facility, Other I have led this team conference and agree with the plan. Interventions/Goals: It is ago the patient and the family as well as the rehabilitation team to get him back to his home environment. However at present he is not functioning at a level that this would be safe. In addition his progress is variable and he appears to have lack of motivation and participation. We encouraged the patient to participate more today and if he does we will continue working with him. If not we will need to move toward skilled care placement the end of this week in 3 days.
[2017-08-29] MEDS: ATORVASTATIN 40 MG TABLET PEG SCH (21:29)
[2017-08-29] MEDS: DONEPEZIL 10 MG TABLET PEG SCH (21:30)
[2017-08-29] MEDS: ENOXAPARIN 40 MG/0.4 ML INJECTION SQ SCH (21:34)
[2017-08-30] MEDS: FAMOTIDINE 20 MG TABLET PEG SCH ×3 (04:31→21:36)
[2017-08-30] MEDS: COLCHICINE 0.6 MG TABLET PEG SCH (10:27)
[2017-08-30] MEDS: CLOPIDOGREL 75 MG TABLET PEG SCH (10:27)
[2017-08-30] MEDS: AMLODIPINE 5 MG TABLET PEG SCH (10:27)
[2017-08-30] MEDS: CARVEDILOL 6.25 MG TABLET PEG SCH (10:27)
[2017-08-30] MEDS: ASPIRIN 81 MG CHEWABLE TABLET PO SCH (10:27)
[2017-08-30] MEDS: DULOXETINE 60 MG CAPSULE PO SCH (10:28)
[2017-08-30] MEDS: DOXAZOSIN 1 MG TABLET PEG SCH ×2 (10:28→21:35)
--- NOTE | 2017-08-30 15:11 | Progress Note ---
DATE 08/30/2017 HISTORY OF PRESENT ILLNESS The patient is in his bed in the Inpatient Rehabilitation Unit at this time. The nurses report today that the patient has been tolerating his tube feedings well. They have seen no recent evidence of any aspiration. There are plans to increase the amount of free water given with the tube feedings since the serum potassium and phosphorus have been elevated. PHYSICAL EXAMINATION VITAL SIGNS: Temperature is 98.5 degrees Fahrenheit oral. Pulse is 74. Respiratory rate is 14. Blood pressure is 141/72. Oxygen saturation is 95% on room air. ABDOMEN: Dressings were removed at the percutaneous endoscopic gastrostomy tube site today. The percutaneous endoscopic gastrostomy tube site was inspected. The percutaneous endoscopic gastrostomy tube site continues to have a satisfactory appearance at this time. IMPRESSION 1. Three previous strokes in 2012, 2014 and 2016. 2. Acute cerebrovascular accident on 08/11/2017. 3. Oropharyngeal dysphagia thought to be associated with the acute cerebrovascular accident on 08/11/2017. 4. Status post esophagogastroduodenoscopy with directed placement of percutaneous endoscopic gastrostomy tube (percutaneous endoscopic gastrostomy) on 08/16/2017. TREATMENT I did change dressings at the percutaneous endoscopic gastrostomy tube site today. PLAN 1. Continue bolus feedings of Jevity 1.2 through the percutaneous endoscopic gastrostomy tube. There are plans to give more free water with the tube feedings. 2. Continue medication administration through the percutaneous endoscopic gastrostomy tube site. 3. I will continue to check the percutaneous endoscopic gastrostomy tube site at the abdomen and change dressings while the patient is in the Inpatient Rehabilitation Unit. RUDY
[2017-08-30] MEDS: DONEPEZIL 10 MG TABLET PEG SCH (21:35)
[2017-08-30] MEDS: ENOXAPARIN 40 MG/0.4 ML INJECTION SQ SCH (21:35)
[2017-08-30] MEDS: ATORVASTATIN 40 MG TABLET PEG SCH (21:35)
[2017-08-31] MEDS: COLCHICINE 0.6 MG TABLET PEG SCH (09:38)
[2017-08-31] MEDS: CLOPIDOGREL 75 MG TABLET PEG SCH (09:38)
[2017-08-31] MEDS: DOXAZOSIN 1 MG TABLET PEG SCH ×2 (09:38→22:36)
[2017-08-31] MEDS: AMLODIPINE 5 MG TABLET PEG SCH (09:38)
[2017-08-31] MEDS: DULOXETINE 60 MG CAPSULE PO SCH (09:38)
[2017-08-31] MEDS: ASPIRIN 81 MG CHEWABLE TABLET PO SCH (09:38)
[2017-08-31] MEDS: CARVEDILOL 6.25 MG TABLET PEG SCH (09:38)
[2017-08-31] MEDS: FAMOTIDINE 20 MG TABLET PEG SCH ×2 (09:39→22:37)
--- NOTE | 2017-08-31 11:41 | IRU Progress Note ---
- Subjective/Serverity of Illness Date: 08/31/17 Mr. Voss was interviewed in his room with his family present. We have requested MRI of brain disc be sent from [facility] a couple of days ago. It has not yet arrived and we will keep our eyes open for this. Family is aware. They would like this compared with the current MRI to see if there is change. Patient did undergo overnight oximetry demonstrating hypoxemia down to 65. Had multiple episodes of desaturation at night. I did advise him and his family that he would not be able to do a sleep study in the hospital and we will need to await him being an outpatient. However in the meantime we can provide oxygen at night and this will be arranged. Patient is somewhat more participatory in therapy. Did not really participate in PT initially but did later on. He is now more participatory in speech therapy wouldn't but unfortunately has not made great progress. Exam Vital Signs: Temperature 97.6 F 08/31/17 07:24 Pulse Rate 80 08/31/17 07:24 Respiratory Rate 16 08/31/17 07:24 Blood Pressure 146/95 H 08/31/17 07:24 Pulse Oximetry 95 08/31/17 07:24 Height/Weight/BMI: Height 1.75 m Weight 68.9 kg Body Mass Index 22.4 - Constitutional Present: no acute distress, well nourished, well developed Comments: Again, the patient barely nods his head yes or no and is minimally interactive with me. He appears to be comfortable. - Routine HEENT Exam Head: Present: normocephalic Eye: Present: EOMI ENT: Present: mucous membranes moist, oropharynx clear - Routine Neck Exam Present: supple - Routine Respiratory Exam Present: decreased breath sounds, wheezes (a few wheezes noted today bilaterally. Has been coughing at times.) - Routine Cardiovascular Exam Present: RRR, S1, S2. Absent: murmur - Routine Abdominal Exam Present: soft, normoactive bowel sounds, non distended. Absent: tenderness - Routine Extremities Exam Present: no edema, normal capillary refill - Routine Skin Exam Present: dry, warm - Routine Neurological Exam Present: alert, motor deficit (he has generalized weakness. It is difficult to determine if one side is weaker than the other.). Absent: oriented X3, CN II- XII intact - Routine Psychiatric Exam Absent: normal affect, normal thought process, good insight, good judgment Results IRU - Labs Labs: Have reviewed chart data as well as therapy notes. Participation continues to be variable. IRU A/P (1) Cerebral infarction Qualifiers: Cerebral infarction mechanism: thrombosis Precerebral and cerebral artery: middle cerebral artery Laterality of affected vessel: left Qualified Code(s) : I63.312 - Cerebral infarction due to thrombosis of left middle cerebral artery Current visit: No Status: Acute Participation in therapy remains variable. He is more cooperative with speech therapy at the present time. However he barely nausea his head yes or no to questions. (2) Dysphagia Qualifiers: Dysphagia type: oropharyngeal phase Qualified Code(s): R13.12 - Dysphagia, oropharyngeal phase Current visit: No Status: Acute Evaluation of swallowing continues to indicate that he is not a candidate for oral feedings and remains on tube feedings. (3) Benign essential hypertension Current visit: No Status: Chronic (4) Memory loss due to medical condition Current visit: No Status: Chronic (5) Obstructive sleep apnea Current visit: Yes Status: Chronic This is primarily a clinical diagnosis at present. Family has observed reduced breathing/apnea at night. His oximetry certainly is consistent with a sleep apnea syndrome. Will defer a formal sleep study until he is an outpatient. In the meantime we will utilize nocturnal oxygen and this has been ordered. DVT Prophylaxis: Lovenox Resuscitation Status: Full Code - Course Hospital Course: Akash Mei MD: 08/22/17 11:09 Slow progress with therapies. Making progress with speech therapy. Improving with regard to transfers with moderate assistance required. 08/24/17 11:19 Slow progress. Requires much motivation for participation. Improving with sliding board transfers. 08/25/17 10:56 Displays a degree of apathy versus sleepiness. We will discontinue mirtazapine today and continue duloxetine. 08/28/17 11:04 Potassium a bit up today. Additional free water being given. His involvement and engagement with therapies is variable. [facility] using with speech therapy but more involved with physical therapy at present. 08/29/17 11:44 Seems more apathetic. Additional free water will be given in 2 feedings. 08/31/17 11:43 Overnight oximetry indicates multiple episodes of desaturation. This is consistent with obstructive sleep apnea. Participation with therapy remains variable. He is not safe to swallow fluids or food at this time. - Interventions to Obtain Goals PT Treatment Plan: Balance/Proprioception, Functional Activities, Gait Training , Patient/Family Education, Therapeutic Exercise OT Treatment Plan: ADL (Basic Care), Balance Training, IADL, Pt./Family Education, Ther. Exercise for ADL Goals Progress/Modifications: He is participating in therapy from time to time. He initially refused physical therapy this morning but subsequently did agree to it. He is participating with speech therapy and occupational therapy although again motivation and amount of participation is variable and at times minimal. We will discuss with therapy today and tomorrow with regard to whether he is making progress and participating. Secondly, the patient has had multiple episodes of desaturation at night on oximetry. This, coupled with observation, make sepsis give the clinical diagnosis of obstructive sleep apnea. We will supply oxygen at night.
[2017-08-31] MEDS: ATORVASTATIN 40 MG TABLET PEG SCH (22:35)
[2017-08-31] MEDS: ENOXAPARIN 40 MG/0.4 ML INJECTION SQ SCH (22:35)
[2017-08-31] MEDS: DONEPEZIL 10 MG TABLET PEG SCH (22:36)
[2017-09-01 07:37] VITALS: BP 128/73; PULSE 96; RESP 18; TEMP 97.7; O2SAT 96
--- NOTE | 2017-09-01 09:38 | Extended Care Facility Orders ---
Admission Orders Admit to:: [facility] Allergies/Adverse Reactions: Allergies Penicillins Adverse Reaction (Mild, Verified 03/17/17 09:26) DOES NOT WORK FOR PATIENT. PATIENT IS "IMMUNE TO THIS". Admitting Diagnosis: stroke Admitting Physician: Akash Mei MD Attending Physician: Akash Mei MD Code Status: Full Code Anticiapted Length of Stay: 30 days or less Rehab Potential: fair Rehab Prognosis: fair Diet: 08/17/17 12:27 NPO Diet [DIET] NPO Modifiers: Nothing by Mouth Tube feedings: Jevity 1.2 with fiber, 400 ML per PEG tube at 0500, 1000, 1600 and 2100. Plus 30 ml H2O pre and post feedings and pre and post meds. Plus 345 ML H2O at 1300 and 1800. Wound/Incision Care: PEG Tube site per Dr. June May use Facility Protocol or Standing Orders: Yes May have flu vaccine: Yes Evaluations/Treatment: Speech, PT, OT [facility] Certification: I certify that SNF services are required to be given on an Inpatient basis because of the patients need for [facility] care on a continuing basis for the condition(s) for which he/she received inpatient hospital services prior to his/her transfer to the SNF. SNF inpatient care is necessary for the following reasons: recent CVA resulting in dysphagia with requirement for NPO status and use of PEG tube for tube feedings, PEG tube site care, meds per PEG tube as well as need for skilled speech therapy, PT and OT. Indication for [facility]: Neuro Assessment, Wound Care/Assessment (PEG tube and feedings), Other (Tube feedings) - Additional Information In Event of Arrest: Start CPR,call 911,send patient to the ER Resident is Aware of Diagnosis: Yes Referrals: Son Frank PA [Primary Care Provider] - (f/u with PCP 1-2 weeks after discharge from SNU. )
--- NOTE | 2017-09-01 09:44 | IRU Progress Note ---
- Subjective/Serverity of Illness Date: 09/01/17 Mr. Rubi was reassessed in his room on inpatient rehabilitation. By means of shaking his head he denies any problems at present. Seems to be awake but somewhat sleepy this morning. He is cooperative and will obey commands. Today his chest is a bit wheezy. This tends to clear after several breaths. Heart remains regular rhythm. The abdomen is soft and nontender. PEG tube in place. We will clarify PEG tube management with Dr. June. Exam Vital Signs: Temperature 97.7 F 09/01/17 07:35 Pulse Rate 96 09/01/17 07:35 Respiratory Rate 18 09/01/17 07:35 Blood Pressure 128/73 09/01/17 07:35 Pulse Oximetry 96 09/01/17 07:35 Height/Weight/BMI: Height 1.75 m Weight 68.9 kg Body Mass Index 22.4 - Constitutional Present: no acute distress, well nourished, well developed, cooperative - Routine HEENT Exam Head: Present: normocephalic Eye: Present: EOMI ENT: Present: mucous membranes moist, oropharynx clear - Routine Respiratory Exam Present: decreased breath sounds, wheezes - Routine Cardiovascular Exam Present: RRR, S1, S2. Absent: murmur - Routine Abdominal Exam Present: soft, normoactive bowel sounds, non distended. Absent: tenderness - Routine Extremities Exam Present: no edema - Routine Skin Exam Present: dry, warm - Routine Neurological Exam Present: alert, moving all extremities. Absent: oriented X3, CN II-XII intact - Routine Psychiatric Exam Present: cooperative Results IRU - Labs Labs: I have reviewed patient's labs which are stable. His white count is normal. IRU A/P (1) Cerebral infarction Qualifiers: Cerebral infarction mechanism: thrombosis Precerebral and cerebral artery: middle cerebral artery Laterality of affected vessel: left Qualified Code(s) : I63.312 - Cerebral infarction due to thrombosis of left middle cerebral artery Current visit: No Status: Acute He appears to be neurologically stable. (2) Dysphagia Qualifiers: Dysphagia type: oropharyngeal phase Qualified Code(s): R13.12 - Dysphagia, oropharyngeal phase Current visit: No Status: Acute He will need to continue nothing by mouth status with demonstration of medications and all of his nutrition via the PEG tube. (3) Benign essential hypertension Current visit: No Status: Chronic (4) Memory loss due to medical condition Current visit: No Status: Chronic (5) Obstructive sleep apnea Current visit: Yes Status: Chronic He will require oxygen at night at 2 L/m per nasal cannula. DVT Prophylaxis: Lovenox Resuscitation Status: Full Code - Course Hospital Course: Akash Mei MD: 08/22/17 11:09 Slow progress with therapies. Making progress with speech therapy. Improving with regard to transfers with moderate assistance required. 08/24/17 11:19 Slow progress. Requires much motivation for participation. Improving with sliding board transfers. 08/25/17 10:56 Displays a degree of apathy versus sleepiness. We will discontinue mirtazapine today and continue duloxetine. 08/28/17 11:04 Potassium a bit up today. Additional free water being given. His involvement and engagement with therapies is variable. [facility] using with speech therapy but more involved with physical therapy at present. 08/29/17 11:44 Seems more apathetic. Additional free water will be given in 2 feedings. 08/31/17 11:43 Overnight oximetry indicates multiple episodes of desaturation. This is consistent with obstructive sleep apnea. Participation with therapy remains variable. He is not safe to swallow fluids or food at this time. 09/01/17 09:49 Patient is stable for transfer. - Interventions to Obtain Goals PT Treatment Plan: Balance/Proprioception, Functional Activities, Gait Training , Patient/Family Education, Therapeutic Exercise OT Treatment Plan: ADL (Basic Care), Balance Training, IADL, Pt./Family Education, Ther. Exercise for ADL Goals Progress/Modifications: Patient is medically stable. I did contact his provider Son BRUMFIELD in [place] to bring him up-to-date on his status.
[2017-09-01] MEDS: COLCHICINE 0.6 MG TABLET PEG SCH (09:55)
[2017-09-01] MEDS: DULOXETINE 60 MG CAPSULE PO SCH (09:55)
[2017-09-01] MEDS: DOXAZOSIN 1 MG TABLET PEG SCH (09:55)
[2017-09-01] MEDS: CLOPIDOGREL 75 MG TABLET PEG SCH (09:55)
[2017-09-01] MEDS: ASPIRIN 81 MG CHEWABLE TABLET PO SCH (09:55)
[2017-09-01] MEDS: CARVEDILOL 6.25 MG TABLET PEG SCH (09:55)
[2017-09-01] MEDS: FAMOTIDINE 20 MG TABLET PEG SCH (09:56)
[2017-09-01] MEDS: AMLODIPINE 5 MG TABLET PEG SCH (09:56)
--- NOTE | 2017-09-01 12:12 | Discharge Summary ---
Discharge Information Date of admission: 08/17/17 15:40 Anticipated date of discharge: 09/01/17 Attending Physician: Akash Mei MD Primary care physician: OCTAVIANO Smith Consults: 08/17/17 16:00 Physician Consult [CONS] Routine Consulting Provider: uDng June Reason For Exam: feeding tube placement Ordering Provider has Notified Restaurant Area Manager: Yes 08/18/17 10:44 Dietary Consult [CONS] Routine Comment: Reason For Exam: New PEG tube Physician [Physician Consult] [CONS] Routine Consulting Provider: [facility] [facility] Reason For Exam: medical evaluation and management Ordering Provider has Notified Restaurant Area Manager: No 08/31/17 10:12 Physician Consult [CONS] Routine Consulting Provider: [facility] Reason For Exam: SNU Ordering Provider has Notified Restaurant Area Manager: Yes - Discharge Diagnosis (1) Cerebral infarction Status: Acute (2) Dysphagia Status: Acute (3) Benign essential hypertension Status: Chronic (4) 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 Severe dysphagia with patient requiring tube feedings and nothing by mouth status 3. Aphasia 4. Benign essential hypertension 5. Memory loss 6. Obstructive sleep apnea (clinical diagnosis based on symptoms and overnight oximetry with hypoxemia) 7. Nocturnal hypoxemia - Laboratory Labs: 08/31/17 06:22 08/31/17 06:22 History of Present Illness HPI: Mr. Rubi is a 62-year-old male from [facility]. He has a history of multiple previous CVAs in 2013, 2015 and 2017. Has some chronic right-sided weakness. He was found to be disorientated and with confusion and new onset aphasia on 08/11/2017. He was seen in the [place] emergency department and was diagnosed with an acute CVA. Further workup included echocardiogram, carotid Doppler study and CT of the brain. He was found lying on the bathroom floor following an unwitnessed fall on 08/15/2017. Since that time his dysphagia and aphasia has become worse. Patient was transferred to [facility] where he was admitted on 08/16/2017. CT scan of the brain was obtained on admission demonstrating multiple old infarcts as well as a new small area of ischemia. He was seen by Dr. June who placed a PEG tube while on acute care on 08/16/2017. He was also noted to have a brief run of ventricular tachycardia and was seen by Dr. Zapien on 08/16/2017. "Linq" interrogation of his pacemaker did not demonstrate an arrhythmia. However telemetry was reviewed and this was still felt to be consistent with "slow V. tach." No specific recommendations were made at this time but he was cleared for the gastric tube placement. He was not felt to be a candidate for further beta ramon usage because of his bradycardia. While on acute care, echocardiogram was done on 08/17/2017 which was technically difficult. Had normal left ventricular function with ejection fraction 65%, trace of tricuspid regurgitation but with normal estimated pulmonary artery systolic pressure of 22. MRI of brain was performed on 08/17/2017 demonstrating acute right MCA territory infarcts in the posterior limb of the internal capsule and right thalamic area. Subsequently, MRI disc from [place] was obtained and compared to the current MRI. [place] MRI was performed on August 14. This showed the right thalamic area of infarct with stable while the posterior limb internal capsule region of diffusion restriction was new from the outside exam. While on acute care he was seen by Dr. Jim on 08/17/2017. He felt as though the patient had an acute ischemic stroke affecting the right middle cerebral artery in addition to the thalamus. He recommended taking aspirin plus Plavix daily, optimizing treatment for hypertension and hyperlipidemia and follow-up with cardiology. Hospital Course This is a general summary of the patient's hospital course. For more details refer to the complete medical record. Mr. Rubi was stabilized while on acute care and transferred to acute inpatient rehabilitation on 08/17/2017 for a comprehensive multidisciplinary approach to his recovery. He was followed by the hospitalist service and Dr. Romo as well as Dr. June for his post PEG tube management. He was seen by the dietitian and placed on tube feedings and tolerated these well. He did display a lot of drooling and difficult management of his secretions. He was taught how to use suction machine to control this. From a medical standpoint, his blood pressures remain stable. Had no further evidence of arrhythmia. Upon dismissal, his white blood cell count was 10,700, hemoglobin 14.2 and platelet count 259,000. His blood sugar was 139, phosphorus elevated at 5.5. A proBNP was normal at 29 on 08/27/2017. Medically he remained stable without further evidence of neurologic change. The following levels of functional competence are to be considered preliminary information. The reader is encouraged to refer to actual therapy notes and reports for specific details. The patient was followed by physical therapy while on acute inpatient rehabilitation. At the conclusion of his stay, the following functional competencies were identified: The patient was not able to ambulate and therefore wheelchair mobility was worked on. Transfers were difficult. The patient was followed by occupational therapy while on acute inpatient rehabilitation. At the conclusion of his stay, the following functional competencies were identified: Total assistance was required for upper body dressing, lower body dressing and toilet transfers. Maximum assistance was required for transfers. The patient was followed and treated by speech therapy with regard to both swallowing training as well as cognition/linguistics. He continued to be felt to be not safe for swallowing and was continued on nothing by mouth status. With regard to communication skills, at some points he was able to speak one word. He was able to use an alphabet board at one point. Subsequently declined to work with speech therapy and did not participate adequately. The patient was felt to be more appropriate for a skilled level of care where he was transferred on 09/01/2017. He will be transferred to [facility] in [facility]. OCTAVIANO Sánchez was contacted by myself and advised of his clinical situation. He will continue with speech therapy, physical therapy and occupational therapy at the skilled level. It was felt the patient could return to his home with some home care but this is not possible present time. Patient required a lot of encouragement and motivation to participate with therapy toward the end. He is on antidepressants. These were adjusted as well. He was not sent with any narcotics at the time of dismissal. Overnight oximetry did reveal the presence of episodes of hypoxemia down into the 65 range. For this reason he was started on nocturnal oxygen at 2 L/m to be used all night every night. At some point as nonpatient he will be a candidate for a more formal sleep study. Diagnosis of obstructive sleep apnea is currently made on clinical basis only. Hospital course: Impression: Acute CVA- 08/11/17 (Admitted at [place], transfer to [facility] 08/16/17) Dysphagia Aphasia Hx of multiple CVA HTN Coronary artery disease Depression Hx Gout Medication non-compliance S/P PEG tube placement 06/07/18 Plan: 08/18/2017-Med Mgmt Consult: Agree with IRU admission. PT/OT/ST. NPO-TF per PEG tube. BP running high, but pt. got meds late today- avoid excessive lowering. Watch BP for now. May need to increase Coreg if BP remains elevated. Will order Q 4 hour vitals. Patient was not consistently taking ASA/Plavix, so will continue those for now per neurology recommendations. Continue supportive medications. He appears quite depressed. Will add Remeron, low dose, to Cymbalta. We may need psychiatry assessment if persists. Suspect this could be a large factor of his poor medication compliance. PEG tube is doing well-start TF today and monitor for any GI intolerance. HX of esophageal stricture- continue PPI for GI protection. LMWH for DVT px. Thank you for the consult- we will follow this patient with you. Plan: 08/19/2017 Seen acutely due to altered mental status. Somnolent, but arousable. Could be multiple factors in play. I suspect he is quite fatigued from extensive therapy, as well as family visitors. I have asked that therapy hold just for this morning only to allow him to rest. Nursing will help limit visitors to allow patient rest during the day. His blood pressure did significantly decline with medication changes made this morning. Hold Cardura. Repeat vitals in 1 hour. Need to rule out developing infection, pulmonary would be the most likely source as patient is at high risk for aspiration. He was started on tube feeding yesterday, and has difficulty managing oral secretions. Assessment CBC, chest x-ray now. Was started on low-dose Remeron last night to help with significant depression. This may also be sedating for him. We'll place order to hold this medication if patient is sedated. Again, unclear factor of moderately decreased mental status. If no clear source , and mental status does not improve, we could consider repeating CT of the head. He does have recent history of multiple infarcts, however, this was felt to be due to poor medication compliance with anticoagulants. His potassium is low, I ordered replacement this morning. Repeat labs in the morning. I have instructed nursing to call us if his status declined to he does not significantly improve. 08/22/2017 Potassium improved to 3.8. Repeat BMP, mg, phos in am d/t tube feeds. Somnolence is improving. BP improved; resume Cardura. Continue therapy per attending. 08/25/2017 electrolytes stable as of 08/23, though phos increasing. repeat labs in am. tolerating tube feeds. ongoing somnolence - mirtazapine dc'd per attending. Time spent with patient: greater than 35 minutes Resuscitation Status: Full Code Discharge Plan - Med Rec/Dispo Referrals/Follow Up: Son Frank PA [Primary Care Provider] - (f/u with PCP 1-2 weeks after discharge from [facility]. ) [facility] Instructions: Ischemic Stroke (DC), Fall Prevention (DC) Prescriptions: New Amlodipine [Norvasc] 5 mg PEG DAILY tab Aspirin Chewable [ASA] 81 mg PEG DAILY tab.chew Atorvastatin [Lipitor] 80 mg PEG HS tab Carvedilol [Coreg] 6.25 mg PEG DAILY tab Clopidogrel [Plavix] 75 mg PEG DAILY tab Colchicine [Colcrys] 0.6 mg PEG DAILY tab Donepezil [Aricept 10 mg] 10 mg PEG HS tab Doxazosin [Cardura] 1 mg PEG BID tab Famotidine [Pepcid] 20 mg PEG BID tab Lisinopril [Prinivil] 20 mg PEG BID tab Duloxetine [Cymbalta] 60 mg PEG DAILY cap Discontinued Carvedilol 1 tab PO DAILY #0 tab [place]-3 Fatty Acids [[place]-3] 1,000 mg PO DAILY Pantoprazole Tab [Protonix Tab] 1 tab PO DAILY Allopurinol [Zyloprim] 300 mg PO DAILY Colchicine [Colcrys] 0.6 mg PO DAILY Aspirin [Ecotrin] 81 mg PO DAILY Amlodipine [Norvasc] 5 mg PO DAILY Atorvastatin Calcium 1 tab PO HS #30 tab Clopidogrel [Plavix] 1 tab PO DAILY Aidan/Vit B12/Folic Acid/Vit B6 [Folic Acid-Vit B6-Vit B12 Tab] 1 tab PO DAILY Zestril (lisinopril) 40 mg tablet 20 mg PO BID tab Nitrostat (nitroglycerin) 0.4 mg sublingual tablet 0.4 mg SL Q5M PRN PRN Reason: Chest Pain Cardura (doxazosin) 2 mg tablet 4 mg PO BID tab Cymbalta (duloxetine) 60 mg capsule,delayed release 60 mg PO DAILY cap Aricept (donepezil) 10 mg tablet 10 mg PO HS #30 tab - Disposition 03 To [facility] Not [facility] (SNF) - Dismissal Complete Discharge Instructions are:: Complete
--- NOTE | 2017-09-01 12:20 | Letter to Referring Physician ---
Dear Lb, This is a brief note to bring you up-to-date on the status of Agustin Rubi and his stay on the acute inpatient rehabilitation unit at [facility]. As you are likely aware, this patient was admitted to [facility] because of new onset of stroke. Please see discharge summary for a summary of his studies which were done while on acute care. The patient was stabilized while on the acute level and admitted to inpatient rehabilitation unit at [facility] on August 17, 2017. While on inpatient rehabilitation, this patient was seen by occupational therapy , physical therapy and speech therapy and improved overall initially in his functional ability. However he subsequently did not participate with therapy adequately and was felt to have plateaued at this level. We do feel as though he is a candidate for skilled care. He is continuing to be unsafe for swallowing and is NPO status. He requires his total nutrition via the tube feedings. Please see a copy of the history and physical examination as well as discharge summary faxed separately for further details. We did receive the disc from [facility] regarding his MRI obtained there. This was compared with the current MRI at [facility]. There did appear to be a new stroke in the intervening time. Please see discharge summary for this specific information. Thank you for allowing us to be involved in this nice patient's care. Please contact me directly should you have any questions regarding their stay on the inpatient rehabilitation unit. Sincerely, Michael Romo M.D.
== END 2017-09-01 11:15 | DRG 57 ==
PROVIDERS: ADMIT Orthopaedic Surgery; ATTEND Orthopaedic Surgery